=== PATIENT | male | born 1990 | race Caucasian/White ===

== ENCOUNTER 2017-02-09 06:17 | Inpatient (IN) | payer OTHER ==
[~2017-02-09] VITALS: Ht 177.8 cm; Wt 88.9 kg
--- NOTE | 2017-02-09 07:58 | DIAGNOSTIC IMAGING REPORT ---
PROCEDURE: CT ABD/PELVIS WITH CONTRAST CLINICAL INDICATION: Lower abdominal pain x 4 days, initial encounter. TECHNIQUE: 125 ml. of Isovue 300 were injected intravenously and axial images were obtained of the entire abdomen and pelvis with sagittal and coronal reformations. COMPARISON: None. FINDINGS: ABDOMEN: Thickening of a long segment of the distal ileum with small amount of free fluid around the tip of the liver. Appendix has a normal caliber. There are diffuse right lower quadrant mesenteric lymph nodes. Lung base are clear. Heart size is normal. Liver, gallbladder, pancreas, spleen, adrenal glands, kidneys and abdominal aorta are normal. PELVIS: Small amount of free fluid the pelvis. Suspected fistula between the distal ileum and mid sigmoid colon. Normal prostate and bladder. Bones are unremarkable. IMPRESSION: 1. Long segment of the distal ileum with wall thickening and small amount of free fluid in the pelvis with suspected fistula between the mid sigmoid and ileum. Findings highly suggestive of Crohn disease. 2. Results discussed with Dr. Mon All CT scans at this facility use dose modulation, iterative reconstruction, and/or weight-based dosing when appropriate to reduce radiation dose to as low as reasonably achievable.
--- NOTE | 2017-02-09 08:59 | ED CLINICAL REPORT ---
Clinical Report - Physicians/Mid Levels [facility] [address] [place] [address] 02/09/2017 6:17 Patient: FRANCOIS EVANS Time Seen: 06:46 Feb 09 2017. Arrived- By private vehicle. Historian- patient. CPT: ER phys charges level 5 (#[id number]). HISTORY OF PRESENT ILLNESS Chief Complaint: ABDOMINAL PAIN and VOMITING and NAUSEA. This started about 4 days [employer] LA[employer] and is still present. It is described as "pain", sharp and cramping and it is described as located in the right lower quadrant and left lower quadrant and in the periumbilical area. At its maximum, severity described as moderate. When seen in the E.D., severity described as moderate. Modifying factors- worsened by movement and food. Not relieved by anything. The patient has had nausea and loss of appetite. No vomiting or diarrhea. No recent travel. Similar symptoms previously: Once, as bad. Diagnosis: unknown. Recent medical care: Not recently seen/assessed. REVIEW OF SYSTEMS No constipation, black stools, hematemesis, difficulty with urination or pain with urination. No urinary frequency, fever, sore throat or throat or chest pain. No difficulty breathing, cough, joint pain, skin rash or chills. No back pain, diabetic symptoms or easy bruising. All systems otherwise negative, except as recorded above. PAST HISTORY Abrasion(s). Substance Abuse. Crush Injury, Upper Extremity. Tetanus Status. Otitis Media. URI. Immunizations. Additional Surgeries: no known surgeries. Medications: None. Allergies: Penicillins. SOCIAL HISTORY Heavy tobacco smoker (cigarette)- less than 1 pack per day. Occasional alcohol use. History of occasional drug use: marijuana. ADDITIONAL NOTES The nursing notes have been reviewed. PHYSICAL EXAM Vital Signs: 02/09/2017 06:25 BP: 134/82. HR: 88. RR: 18. O2 saturation: 100%. Pain level now: 10/10. Appearance: Alert. Appears to be in pain. Patient in moderate distress. Eyes: Eyes normal inspection. ENT: Pharynx normal. Neck: Normal inspection. CVS: Normal heart rate and rhythm. Heart sounds normal. Pulses normal. Respiratory: No respiratory distress. Breath sounds normal. Chest nontender. Abdomen: Soft. Moderate tenderness in the right side of the abdomen, periumbilical area, suprapubic area and left lower quadrant. Abnormal bowel sounds: absent. No mass. Back: Normal inspection. No CVA tenderness. Skin: Skin warm. Normal skin color. No rash. Extremities: Extremities exhibit normal ROM. Neuro: Oriented X 3. No motor deficit. No sensory deficit. LABS, X-RAYS, AND EKG Abdominal CT: Thickening of a long segment of the ileum . Fistula between mid sigmoid and distal ileum. Crohn's is highly likely. Abdominal CT performed with IV contrast. The study was interpreted by the radiologist and discussed with the radiologist. Laboratory Tests: CBC w Diff: (JOSSELIN: 02/09/2017 06:30) ( [facility] [place] 02/09/2017 06:40) Final results Test Result Flag Units (Reference) WHITE BLOOD COUNT 11.9 H K/uL (4.5-11.5) RED BLOOD COUNT 4.89 M/uL (4.50-5.90) HEMOGLOBIN 14.4 gm/dL (13.5-17.5) HEMATOCRIT 42.3 % (41.0-53.0) MEAN CELL VOLUME 87 fL (80-100) MEAN CORPUSCULAR HGB 30 pg (26-34) MEAN CORPUSCULAR HGB CONC 34 g/dL (31-37) RED CELL DISTRIBUTION WIDTH 13.1 % (11.6-14.8) PLATELET COUNT 274 K/uL (150-400) NEUTROPHIL % 67.8 % (50-75) LYMPH % 22.5 L % (25-40) MONO % 6.8 % (3-14) EOSINOPHIL % 2.5 % (0-4) BASOPHIL % 0.4 % (0-2) CMP: (JOSSELIN: 02/09/2017 06:30) ( IdgRcvd 02/09/2017 07:52) Final results Test Result Flag Units (Reference) GLUCOSE 107 mg/dL (70-110) BUN 9 mg/dL (7-18) CREATININE 0.9 mg/dL (0.6-1.3) Estimated GFR >60 mL/min Estimated GFR- >60 mL/min Note: Persistent reduction over 3 months in eGFR<60 mL/min/1.73 m2 defines CKD. Patients with eGFR values>=60 mL/min/1.73 m2 may also have CKD if evidence ofpersistent proteinuria. Additional information may be foundat www.kidney.org. SODIUM 139 mmol/L (136-145) POTASSIUM 4.6 mmol/L (3.5-5.1) CHLORIDE 106 mmol/L (98-107) CARBON DIOXIDE 20 L mmol/L (21-32) CALCIUM 8.7 mg/dL (8.5-10.1) TOTAL PROTEIN 7.4 g/dL (6.4-8.2) ALBUMIN 3.6 g/dL (3.3-5.0) BILIRUBIN, TOTAL 0.3 mg/dL (0.0-1.0) ALKALINE PHOSPHATASE 78 U/L (46-116) AST (SGOT) 30 U/L (15-37) ALT (SGPT) 47 U/L (12-78) LIPASE 186 U/L (73-393) AMYLASE 28 U/L (25-115) . PROGRESS AND PROCEDURES Course of Care: IV NS Dilaudid 0.5 mg IV Zofran 4 mg IV Solumedrol 125 mg IV Patient is stable. Symptoms better. Discussed case with health care provider (Sophie.). Patient/family counseled. Disposition orders written. Disposition: Admitted to Acute Care. CLINICAL IMPRESSION Acute periumbilical and left lower quadrant abdominal pain of undetermined cause. (Likely crohn's disease). (Electronically signed by Baltazar Mon MD 02/10/2017 11:44)
--- NOTE | 2017-02-09 08:59 | ED ORDER SUMMARY ---
..... Patient: FRANCOIS EVANS OrderSheet [facility] VisitID: [id number] [address] [place] [address] 27y, M Registration Date/Time: 02/09/2017 ORDER SHEET Weight: 94.3 kg Allergies: Penicillins GENERAL ORDERS: CBC w Diff Urgent (06:32 02/09/2017 TBowen R.N. per protocol) (6:32 TBowen R.N.) Verbal order read back and verified CMP Urgent (06:32 02/09/2017 TBowen R.N. per protocol) (6:32 TBowen R.N.) Verbal order read back and verified UA-Culture if indicated Urgent (06:02/09/2017 TBowen R.N. per protocol) (Ack 6:33 TBowen R.N.) (8:58 KHoerner) Verbal order read back and verified CT Abd/Pel w Cont (No) (N/A) Urgent (06:49 02/09/2017 Efe JARAMILLO) (Ack 6:51 SRedmond) (7:28 KHoerner) Amylase Urgent (06:50 02/09/2017 Efe JARAMILLO) (Ack 6:51 SRedmond) (7:28 KHoerner) Lipase Urgent (06:50 02/09/2017 Efe JARAMILLO) (Ack 6:51 SRedmond) (7:28 KHoerner) MEDICATION ORDERS: IV FLUIDS: Dilaudid IV 0.5 mg (NOW) (06:50 02/09/2017 Efe JARAMILLO) (7:00 TBowen R.N.) Zofran IV 4 mg (NOW) (06:50 02/09/2017 Efe JARAMILLO) (7:01 TBowkit R.N.) IV NS : initial bolus none -, then 500 mL/hr for 4h (NOW); Routine (08:57 02/09/2017 Efe JARAMILLO) (9:19 Jason R.N.) Solu-MEDROL IV 125 mg (NOW) (08:58 02/09/2017 Efe JARAMILLO) (9:19 Jason R.N.) ORDER SHEET NOTES: [Electronically signed by Angela Leblanc R.N. (10:41 02/09/2017)] [Electronically signed by Baltazar Mon MD (11:44 02/10/2017)] [Electronically locked/signed by Angela Leblanc R.N. (10:41 02/09/2017)]
--- NOTE | 2017-02-09 08:59 | ED CLINICAL REPORT ---
Clinical Report - Physicians/Mid Levels [facility] [address] [place] [place] [address] 02/09/2017 6:17 Patient: FRANCOIS EVANS Time Seen: 06:46 Feb 09 2017. Arrived- By private vehicle. Historian- patient. CPT: ER phys charges level 5 (#[id number]). HISTORY OF PRESENT ILLNESS Chief Complaint: ABDOMINAL PAIN and VOMITING and NAUSEA. 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 It is described as "pain", sharp and cramping and it is described as located in the right lower quadrant and left lower quadrant and in the periumbilical area. At its maximum, severity described as moderate. When seen in the E.D., severity described as moderate. Modifying factors- worsened by movement and food. Not relieved by anything. The patient has had nausea and loss of appetite. No vomiting or diarrhea. No recent travel. Similar symptoms previously: Once, as bad. Diagnosis: unknown. Recent medical care: Not recently seen/assessed. REVIEW OF SYSTEMS No constipation, black stools, hematemesis, difficulty with urination or pain with urination. No urinary frequency, fever, sore throat or throat or chest pain. No difficulty breathing, cough, joint pain, skin rash or chills. No back pain, diabetic symptoms or easy bruising. All systems otherwise negative, except as recorded above. PAST HISTORY Abrasion(s). Substance Abuse. Crush Injury, Upper Extremity. Tetanus Status. Otitis Media. URI. Immunizations. Additional Surgeries: no known surgeries. Medications: None. Allergies: Penicillins. SOCIAL HISTORY Heavy tobacco smoker (cigarette)- less than 1 pack per day. Occasional alcohol use. History of occasional drug use: marijuana. ADDITIONAL NOTES The nursing notes have been reviewed. PHYSICAL EXAM Vital Signs: 02/09/2017 06:25 BP: 134/82. HR: 88. RR: 18. O2 saturation: 100%. Pain level now: 10/10. Appearance: Alert. Appears to be in pain. Patient in moderate distress. Eyes: Eyes normal inspection. ENT: Pharynx normal. Neck: Normal inspection. CVS: Normal heart rate and rhythm. Heart sounds normal. Pulses normal. Respiratory: No respiratory distress. Breath sounds normal. Chest nontender. Abdomen: Soft. Moderate tenderness in the right side of the abdomen, periumbilical area, suprapubic area and left lower quadrant. Abnormal bowel sounds: absent. No mass. Back: Normal inspection. No CVA tenderness. Skin: Skin warm. Normal skin color. No rash. Extremities: Extremities exhibit normal ROM. Neuro: Oriented X 3. No motor deficit. No sensory deficit. LABS, X-RAYS, AND EKG Abdominal CT: Thickening of a long segment of the ileum . Fistula between mid sigmoid and distal ileum. Crohn's is highly likely. Abdominal CT performed with IV contrast. The study was interpreted by the radiologist and discussed with the radiologist. Laboratory Tests: CBC w Diff: (JOSSELIN: 02/09/2017 06:30) ( [facility] [place] 02/09/2017 06:40) Final results Test Result Flag Units (Reference) WHITE BLOOD COUNT 11.9 H K/uL (4.5-11.5) RED BLOOD COUNT 4.89 M/uL (4.50-5.90) HEMOGLOBIN 14.4 gm/dL (13.5-17.5) HEMATOCRIT 42.3 % (41.0-53.0) MEAN CELL VOLUME 87 fL (80-100) MEAN CORPUSCULAR HGB 30 pg (26-34) MEAN CORPUSCULAR HGB CONC 34 g/dL (31-37) RED CELL DISTRIBUTION WIDTH 13.1 % (11.6-14.8) PLATELET COUNT 274 K/uL (150-400) NEUTROPHIL % 67.8 % (50-75) LYMPH % 22.5 L % (25-40) MONO % 6.8 % (3-14) EOSINOPHIL % 2.5 % (0-4) BASOPHIL % 0.4 % (0-2) CMP: (JOSSELIN: 02/09/2017 06:30) ( WygRcvd 02/09/2017 07:52) Final results Test Result Flag Units (Reference) GLUCOSE 107 mg/dL (70-110) BUN 9 mg/dL (7-18) CREATININE 0.9 mg/dL (0.6-1.3) Estimated GFR >60 mL/min Estimated GFR- >60 mL/min Note: Persistent reduction over 3 months in eGFR<60 mL/min/1.73 m2 defines CKD. Patients with eGFR values>=60 mL/min/1.73 m2 may also have CKD if evidence ofpersistent proteinuria. Additional information may be foundat www.kidney.org. SODIUM 139 mmol/L (136-145) POTASSIUM 4.6 mmol/L (3.5-5.1) CHLORIDE 106 mmol/L (98-107) CARBON DIOXIDE 20 L mmol/L (21-32) CALCIUM 8.7 mg/dL (8.5-10.1) TOTAL PROTEIN 7.4 g/dL (6.4-8.2) ALBUMIN 3.6 g/dL (3.3-5.0) BILIRUBIN, TOTAL 0.3 mg/dL (0.0-1.0) ALKALINE PHOSPHATASE 78 U/L (46-116) AST (SGOT) 30 U/L (15-37) ALT (SGPT) 47 U/L (12-78) LIPASE 186 U/L (73-393) AMYLASE 28 U/L (25-115) . PROGRESS AND PROCEDURES Course of Care: IV NS Dilaudid 0.5 mg IV Zofran 4 mg IV Solumedrol 125 mg IV Patient is stable. Symptoms better. Discussed case with health care provider (Sophie.). Patient/family counseled. Disposition orders written. Disposition: Admitted to Acute Care. CLINICAL IMPRESSION Acute periumbilical and left lower quadrant abdominal pain of undetermined cause. (Likely crohn's disease). (Electronically signed by Baltazar Mon MD 02/10/2017 11:44)
--- NOTE | 2017-02-09 08:59 | ED ORDER SUMMARY ---
..... Patient: FRANCOIS EVANS OrderSheet [facility] VisitID: [id number] [address] [place] [address] 27y, M Registration Date/Time: 02/09/2017 ORDER SHEET Weight: 94.3 kg Allergies: Penicillins GENERAL ORDERS: CBC w Diff Urgent (06:32 02/09/2017 TBowen R.N. per protocol) (6:32 TBowen R.N.) Verbal order read back and verified CMP Urgent (06:32 02/09/2017 TBowen R.N. per protocol) (6:32 TBowen R.N.) Verbal order read back and verified UA-Culture if indicated Urgent (06:02/09/2017 TBowen R.N. per protocol) (Ack 6:33 TBowen R.N.) (8:58 KHoerner) Verbal order read back and verified CT Abd/Pel w Cont (No) (N/A) Urgent (06:49 02/09/2017 Efe JARAMILLO) (Ack 6:51 SRedmond) (7:28 KHoerner) Amylase Urgent (06:50 02/09/2017 Efe JARAMILLO) (Ack 6:51 SRedmond) (7:28 KHoerner) Lipase Urgent (06:50 02/09/2017 Efe JARAMILLO) (Ack 6:51 SRedmond) (7:28 KHoerner) MEDICATION ORDERS: IV FLUIDS: Dilaudid IV 0.5 mg (NOW) (06:50 02/09/2017 Efe JARAMILLO) (7:00 TBowen R.N.) Zofran IV 4 mg (NOW) (06:50 02/09/2017 Efe JARAMILLO) (7:01 TBowkit R.N.) IV NS : initial bolus none -, then 500 mL/hr for 4h (NOW); Routine (08:57 02/09/2017 Efe JARAMILLO) (9:19 Jason R.N.) Solu-MEDROL IV 125 mg (NOW) (08:58 02/09/2017 Efe JARAMILLO) (9:19 Jason R.N.) ORDER SHEET NOTES: [Electronically signed by Angela Leblanc R.N. (10:41 02/09/2017)] [Electronically signed by Baltazar Mon MD (11:44 02/10/2017)] [Electronically locked/signed by Angela Leblanc R.N. (10:41 02/09/2017)]
--- NOTE | 2017-02-09 08:59 | ED NURSING NOTES ---
Clinical Report - Nurses [facility] [address] [place] [address] 02/09/2017 6:17 Patient: FRANCOIS EVANS TRIAGE Triage time 06:25. Acuity: LEVEL 3. Chief Complaint: ABDOMINAL PAIN, NAUSEA and VOMITING. --06:28 Ellis R.N. 06:02/09/17. BP: 134/82. HR: 88. RR: 18. O2 saturation: 100%. Pain level now: 07/27. --06:28 Ellis R.N. 06:02/09/17. Temp: 97.6 F. --06:29 Ellis R.N. Weight: 94.3 kg. Height/Length: 70 inches. BMI: 29.8. --06:27 Ellis R.N. Medications None. --06:25 Ellis R.N. Allergies Penicillins. --06:25 Ellis R.N. History Arrived by private vehicle. Historian: patient. ( pt states the pain started Wednesday). The patient has had nausea, vomiting and diarrhea. Last oral intake by patient was 1 hour ago. 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 PAST MEDICAL HX: Immunizations: up-to-date. SOCIAL HX: Light tobacco smoker- less than 1/2 a pack per day. Occasional alcohol use. History of occasional drug use: marijuana. No recent travel. No infectious disease exposure. No known contact with a sick individual. SELF HARM ASSESSMENT: A self harm assessment was performed. The patient answered "no" to the question "Have you recently felt down, depressed, or hopeless?", "Have you noticed less interest or pleasure in doing things?", "Do you have thoughts of harming or killing yourself?", "Are you here because you tried to hurt yourself?", "Have you ever tried to hurt yourself before today?", "Have you recently had thoughts about harming or killing others?" and "Do you have any dangerous items in your possession?". FALL RISK ASSESSMENT: Fall risk assessment completed. No fall risk identified. NUTRITIONAL RISK ASSESSMENT: The nutritional risk assessment revealed no deficiencies. FUNCTIONAL ASSESSMENT: Functional assessment: no impairments noted. LEARNING NEEDS ASSESSMENT: The learning needs assessment revealed no barriers. SKIN INTEGRITY ASSESSMENT: Skin integrity risk assessment completed. No skin integrity risk identified. --06:28 Osvaldo Corral PROBLEMS: Abrasion(s). Substance Abuse. Crush Injury, Upper Extremity. Tetanus Status. Otitis Media. URI. Immunizations. --: Osvaldo Corral ADDITIONAL SURGERIES: no known surgeries. Interventions ID band on patient. To treatment room. --06:28 Osvaldo Corral PHYSICAL ASSESSMENT Ambulatory to room. GENERAL / NEURO / PSYCH: Alert. Oriented X 4. Appears in pain. HEENT: Mucous membranes are pink. RESPIRATORY: Respirations not labored. Breath sounds within normal limits. CVS: Normal sinus rhythm noted. Capillary refill less than 2 seconds. GI / : The patient has had nausea and diarrhea. Emesis noted. Abdomen soft. Bowel sounds within normal limits. SKIN: Skin is warm and dry. --06:28 Osvaldo Corral NURSING PROGRESS NOTES Patient gowned. Patient identifiers checked. Call light placed in reach. Side rails up x 1. Bed placed in lowest position. Brakes of bed on. --06:29 Osvaldo Corral Checked patient name and birthdate. Blood samples drawn from the right antecubital space by nurse ; labeled in presence of the patient and sent to lab: rainbow set. --06:30 Osvaldo Corarl 06:30 02/09/2017 One (1) unsuccessful IV access attempt including the right antecubital space. Applied bandage and manual pressure (sindi blood at time of attempt). --06:35 Katie Meade R.N. 06:33 02/09/2017 Site #1 started via IV in the left antecubital space with an 20g angiocath, with aseptic technique and good blood return; one attempt. Saline lock flushed with 10 mL saline. --06:33 Osvaldo Corral Patient ID band checked for patient name and birthdate: patient confirmed. Blood samples drawn from the right antecubital space peripheral IV site (prior to IV fluid start) by nurse per protocol ; labeled in presence of the patient and sent to lab: alyssa set. --06:35 Katie Meade R.N. 07:00 02/09/2017 Dilaudid (HYDROmorphone HCl PF) IVP 0.5 mg given over 1 minute(s) via site #1. Allergies verified, confirmed 5 rights and sedative warning given to the patient. IV patency established. IV site checked: no pain, redness, or swelling. IV flushed thoroughly pre- and post-medication administration. IVP given by RN. --07:00 Osvaldo Corral 07:01 02/09/2017 Zofran (Ondansetron HCl) IVP 4 mg given over 1 minute(s) via site #1. Allergies verified and confirmed 5 rights. IV patency established. IV site checked: no pain, redness, or swelling. IV flushed thoroughly pre- and post-medication administration. IVP given by RN. --07:01 Osvaldo Corral Care transferred and report received. --07:01 Radha Espitia R.N. 07:15 02/09/17. Patient transported to CT by stretcher with tech. --07:15 Radha Espitia R.N. 07:45 02/09/17. BP: 128/64. HR: 62. RR: 16. O2 saturation: 98%. --07:46 Radha Espitia R.N. 07:46 02/09/17. Warming measures: blanket applied. He was positioned up in bed. Lights dimmed. --07:46 Radha Espitia R.N. 07:47 02/09/17. Reassessment after procedure and medication administered (report pain at IV site after CT). Overall patient status- he states feels better. GI / : The patient reports nausea is gone now. The patient reports abdominal pain is still present but improving. --07:47 Radha Espitia R.N. 08:39 02/09/17. BP: 113/64. HR: 61. RR: 14. O2 saturation: 97%. --08:39 Nupur, Radha, R.N. ( reminded patient that we need urine). --08:40 Radha Espitia R.N. 09:12 02/09/2017 Site #1 removed. Bandaid applied (painful removed at patient request). --09:18 Radha Espitia R.N. 09:13 02/09/2017 Site #2 started via IV in the right wrist with an 20g angiocath, with aseptic technique and good blood return; one attempt. Saline lock flushed with 10 mL saline. --09:18 Radha Espitia R.N. 09:16 02/09/2017 Started bag #1 1000 mL IV Fluids IV NS (Saline); at 500 mL/hr over 2 hour(s) via site #2 via IV pump. Allergies verified and confirmed 5 rights. IV patency established. IV site checked: no pain, redness, or swelling. IV flushed thoroughly pre- and post-medication administration. --09:19 Radha Espitia R.N. 09:19 02/09/2017 SOLU-MEDROL (MethylPREDNISolone Sodium Succ) IVP 125 mg given over 2 minute(s) via site #2. Allergies verified and confirmed 5 rights. IV patency established. IV site checked: no pain, redness, or swelling. IV flushed thoroughly pre- and post-medication administration. IVP given by RN. --09:19 Radha Espitia R.N. 09:44 02/09/17. BP: 134/63. HR: 60. RR: 14. O2 saturation: 98%. --09:44 Radha Espitia R.N. Patient ID band checked for patient name and birthdate: patient confirmed. Instructions provided to collect clean catch urine and patient verbalized understanding. Clean catch urine collected with return of yellow-colored urine; odor is normal; sample sent to lab for urinalysis and culture. Specimen labeled in the presence of the patient. --09:57 Delphine Geller ER TechJuve 10:19 02/09/2017 IV Fluids IV NS Continued: upon admission at the rate of 250 mL/hr. 250 mL remaining bag #1. IV patency established. IV site checked: no pain, redness, or swelling. IV flushed thoroughly. --10:19 Angela Leblanc R.N. 10:24 02/09/2017 Site #[address] upon admission; patent and no pain. Good blood return present. Flushed. --10:24 Angela Leblanc R.N. DISPOSITION / DISCHARGE [facility]-- Departure time: 07:23. No learning barriers present. Discharge instructions provided and reviewed with the patient. Reviewed medication(s) information. Prescription(s) given to the patient. Work note given. Patient verbalized understanding. Written instructions provided in Surinamese. The patient was discharged home and accompanied by family. He left the Emergency Department ambulatory and via private vehicle. --07:23 Radha Espitia R.N. --END STRIKE>> Charted On Wrong Patient --07:24 Radha Espitia R.N. <<[facility]-- 07:22 02/09/17. BP: 121/69. HR: 82. RR: 16. O2 saturation: 98%. --07:23 Radha Espitia R.N. --END STRIKE>> Charted on wrong patient. --07:25 Radha Espitia R.N. 10:18 02/09/17. BP: 129/62. HR: 59. RR: 18. O2 saturation: 97% on room air. Temp: deferred. 09:44 02/09/17. BP: 134/63. HR: 60. RR: 14. O2 saturation: 98%. 08:39 02/09/17. BP: 113/64. HR: 61. RR: 14. O2 saturation: 97%. 07:45 02/09/17. BP: 128/64. HR: 62. RR: 16. O2 saturation: 98%. 06:29 02/09/17. Temp: 97.6 F. 06:25 02/09/17. BP: 134/82. HR: 88. RR: 18. O2 saturation: 100%. Pain level now: 07/27. --10:19 Angela Leblanc R.N. Transported via stretcher by tech with IV. Report was given. (ISIAH Stone). Patient's personal items include: shirt, pants, undergarments, socks, shoes, wallet and cell phone; items were placed in belongings bag and transported with the patient. Collection of belongings was witnessed by 1 nurse. He did not have coat. --10:26 Angela Leblanc R.N. Locked/Released at 02/09/2017 10:41 by Angela Leblanc R.N.
--- NOTE | 2017-02-09 10:35 | Progress Note ---
Subjective General The patient is a 27-year-old white male with a with a prior medical history of probable Crohn's. Patient presented to the emergency department. [facility] with complaint of abdominal pain, pain have been persistent over the past 3-4 days. Patient states that he's had history of inflammatory changes. His bowels. Patient has been seen by gastroenterology who is recommended therapy. Patient when seen in the ED, was found with an exam for an acute abdomen. General surgery was consulted. Patient was put on nothing by mouth. CT of abdomen was done. Showed inflammatory changes at the cecum. Patient symptoms and findings suggestive of Crohn's. Secondary to the above, the patient was admitted by Doug Cornejo M.D. for further evaluation and treatment. For history of present illness began 2-3 days prior to admission when the patient had increasing pain in the abdominal region. Patient had poor by mouth. Patient had multiple bouts of vomiting. Patient states he always has loose tube with increase in stooling occurred. Patient reports that for the end of 2014. In the beginning of 2015. Patient was hospitalized some more compliant. At that time multiple imaging was done. Patient was also scoped from top and bottom. Patient reports that he was not clear as to causation. Doctors of time. Discussed starting patient on medication to see how he did. Patient since then has been taking [id number] therapy with success until recently when patient began having pain return. Physical Exam General Appearance Oriented X3, Cooperative, Mild distress HEENT EOMI, Moist mucous membranes Lungs Clear to auscultation, Normal air movement Neck Supple, No JVD, No masses, No thyromegaly Cardiovascular Regular rate and rhythm, Normal S1 and S2 Abdomen Distended with tenderness in all four quadrants. Bowel sounds present no rebound, Extremities No cyanosis, No clubbing Skin No Significant Lesions Neurological Cranial nerves intact Psych/Mental Status Mental status normal, Mood normal LAB Results Laboratory Tests 02/09 02/09 02/09 0630 0630 0850 Chemistry Plasma Sodium (136 - 145 mmol/L) 139 Plasma Potassium (3.5 - 5.1 mmol/L) 4.6 Plasma Chloride (98 - 107 mmol/L) 106 CO2 (Enzymatic) (21 - 32 mmol/L) 20 BUN (7 - 18 mg/dL) 9 Creatinine (0.6 - 1.3 mg/dL) 0.9 Est GFR ( Amer) (mL/min) >60 Est GFR (Non-Af Amer) (mL/min) >60 Glucose (70 - 110 mg/dL) 107 Plasma Calcium (8.5 - 10.1 mg/dL) 8.7 Total Bilirubin (0.0 - 1.0 mg/dL) 0.3 AST (15 - 37 U/L) 30 ALT (12 - 78 U/L) 47 Alkaline Phosphatase (46 - 116 U/L) 78 Total Protein (6.4 - 8.2 g/dL) 7.4 Albumin (3.3 - 5.0 g/dL) 3.6 Amylase (25 - 115 U/L) 28 Cancelled Lipase (73 - 393 U/L) 186 Cancelled Hematology WBC (4.5 - 11.5 K/uL) 11.9 RBC (4.50 - 5.90 M/uL) 4.89 Hgb (13.5 - 17.5 gm/dL) 14.4 Hct (41.0 - 53.0 %) 42.3 MCV (80 - 100 fL) 87 MCH (26 - 34 pg) 30 RDW (11.6 - 14.8 %) 13.1 Neut % (Auto) (50 - 75 %) 67.8 Lymph % (Auto) (25 - 40 %) 22.5 [place] % (Auto) (3 - 14 %) 6.8 Eos % (Auto) (0 - 4 %) 2.5 Baso % (Auto) (0 - 2 %) 0.4 Plt Count, EDTA (150 - 400 K/uL) 274 PUBS MCHC (31 - 37 g/dL) 34 Urines Urine Color YELLOW Urine Appearance CLEAR Urine pH (5.0 - 8.0) 5.5 Ur Specific [place] (1.010 - 1.030) 1.010 Urine Protein (NEGATIVE) NEGATIVE Urine Ketones (NEGATIVE) NEGATIVE Urine Blood (NEGATIVE) NEGATIVE Urine Nitrite (NEGATIVE) NEGATIVE Urine Bilirubin (NEGATIVE) NEGATIVE Urine Urobilinogen (0.2 - 1.0 EU/dL) 0.2 Ur Leukocyte Esterase (NEGATIVE) NEGATIVE Urine RBC (0 - 1 rbc/hpf) 0-1 Urine WBC (0 - 1 wbc/hpf) NONE SEEN Ur Epithelial Cells (0 - 5 EPI/hpf) 0-1 Urine Bacteria (NONE SEEN) NONE SEEN Urine Glucose (NEGATIVE) NEGATIVE Urine Comment CULT NOT INDICATED Microbiology Date/Time Procedure - Status Source Growth 02/09 1028 Escherichia coli Shiga Toxins EIA - ORD STOOL 02/09 1028 Campylobacter Culture - ORD STOOL 02/09 1028 Salmonella/Shigella Culture - ORD STOOL 02/09 1028 Ova and Parasites - ORD STOOL 02/09 1028 Clostridium difficile Toxin A & B - ORD STOOL 02/09 1028 Specimen Source - ORD STOOL 02/09 1028 Stool Leukocytes - ORD STOOL Imaging ROCEDURE: CT ABD/PELVIS WITH CONTRAST IMPRESSION: 1. Long segment of the distal ileum with wall thickening and small amount of free fluid in the pelvis with suspected fistula between the mid sigmoid and ileum. Findings highly suggestive of Crohn disease. Assessment and Plan Problem List 1. CROHN'S FLARE Plan Nava to be a Crohn's flare. The patient with general surgery, may consider colonoscopy. In the meantime, patient is nothing by mouth. Patient was also be put on TPN for nutritional support. Patient needs strict bowel rest. 2. ABDOMINAL PAIN Plan Acute abdomen. ABIs for prophylaxis. 3. Nausea & vomiting Plan Nothing by mouth at this time. 4. Diarrhea in adult patient Plan Diarrhea. Reviewed its consequence of food Crohn's disease. E&M Codes Admission: Inpt-Moderate/28635
[2017-02-09 10:38] VITALS: BP 122/61
--- NOTE | 2017-02-09 12:46 | DIAGNOSTIC IMAGING REPORT ---
PROCEDURE: XR CHEST 1 VIEW INDICATION: PICC PLACEMENT TECHNIQUE: Portable AP view 12:38 p.m. COMPARISON: None. FINDINGS: Right PICC line with the tip in the SVC. Lungs are clear. Heart and mediastinum are normal. Thorax is normal. IMPRESSION: 1. Right PICC line in satisfactory position 2. Results called to respiratory (Luis Fernando).
[2017-02-09 14:18] VITALS: BP 110/54
[2017-02-09 18:25] VITALS: BP 100/54
[2017-02-09 22:50] VITALS: BP 124/55
[2017-02-10 02:55] VITALS: BP 120/63
[2017-02-10 07:09] VITALS: BP 104/45
--- NOTE | 2017-02-10 07:30 | DIAGNOSTIC IMAGING REPORT ---
PROCEDURE: XR ABDOMEN 1 VIEW UPRIGHT INDICATION: Crohn disease. Follow-up. TECHNIQUE: AP upright view. COMPARISON: Compared to CT abdomen pelvis on 02/09/2017. FINDINGS: There are moderately prominent small bowel loops in the right central and lower abdomen with a few air-fluid levels. Bowel pattern is otherwise normal. No evidence of free air. Soft tissues and osseous structures are normal. IMPRESSION: 1. Moderately prominent and mildly dilated small bowel loops in right lower quadrant consistent with ileus or partial small bowel obstruction. 2. Otherwise negative abdomen.
--- NOTE | 2017-02-10 07:45 | Progress Note ---
Subjective General Note Date: February 10, 2017 Admission Date: February 09, 2017 Hospital Day: 2 PCP: Unknown Status: AC inpatient Advanced Directive: FULL CODE Room: 211- Brief history 27-year-old white male with a with a prior medical history of probable Crohn's. Patient presented to the emergency department. [facility] with complaint of abdominal pain, pain have been persistent over the past 3-4 days. Patient states that he' s had history of inflammatory changes. His bowels. Patient has been seen by gastroenterology who is recommended therapy. Patient when seen in the ED, was found with an exam for an acute abdomen. General surgery was consulted. Patient was put on nothing by mouth. CT of abdomen was done. Showed inflammatory changes at the cecum. Patient symptoms and findings suggestive of Crohn's. Secondary to the above, the patient was admitted by Doug Cornejo M.D. for further evaluation and treatment. Subjective Patient reports a mild improvement in pain. Patient will have a colonoscopy today. Repeat imaging was done. Dr. Gonzalez stated that the colonoscopy showed resolution of the inflammation in the terminal ileum. Opted for recommended Laproscopic procedure. Patient is now on clear liquids. Tolerated the TPN. Physical Exam Vital Signs / I&Os Vital Signs Date Time Temp Pulse Resp B/P Pulse O2 O2 Flow FiO2 Ox Delivery Rate 02/10 0709 97.9 85 22 104/45 95 Room Air 0.0 02/10 0255 97.9 89 18 120/63 98 Room Air 02/09 2250 97.5 64 18 124/55 95 Room Air 02/09 1825 98.2 70 18 100/54 98 Room Air 02/09 1659 Room Air 02/09 1418 98.2 62 20 110/54 96 Room Air 0.0 02/09 1135 Room Air 0.0 02/09 1038 97.7 77 24 122/61 97 Room Air 0.0 I&O 02/09 0800 02/09 1600 02/10 0000 Intake Total 495 1288 Output Total 300 400 Balance 195 888 General Appearance Oriented X3, Cooperative HEENT Normal exam, EOMI Lungs Clear to auscultation, Normal air movement Neck Supple Cardiovascular Normal S1 and S2, No murmurs, gallops, rubs Abdomen tenderness, less distention. Bowel sounds appreciated Neurological Normal speech, Cranial nerves intact Psych/Mental Status Mood normal LAB Results Laboratory Tests 02/10 02/10 02/10 UNK 0500 0545 Chemistry Plasma Sodium (136 - 145 mmol/L) Cancelled 138 Plasma Potassium (3.5 - 5.1 mmol/L) Cancelled 4.5 Plasma Chloride (98 - 107 mmol/L) Cancelled 106 CO2 (Enzymatic) (21 - 32 mmol/L) Cancelled 24 BUN (7 - 18 mg/dL) Cancelled 10 Creatinine (0.6 - 1.3 mg/dL) Cancelled 0.9 Est GFR ( Amer) (mL/min) Cancelled >60 Est GFR (Non-Af Amer) (mL/min) Cancelled >60 Glucose (70 - 110 mg/dL) Cancelled 166 Plasma Calcium (8.5 - 10.1 mg/dL) Cancelled 8.9 Phosphorus (2.5 - 4.9 mg/dL) 3.1 Plasma Magnesium (1.8 - 2.4 mg/dL) 2.2 Total Bilirubin (0.0 - 1.0 mg/dL) 0.3 AST (15 - 37 U/L) 16 ALT (12 - 78 U/L) 40 Alkaline Phosphatase (46 - 116 U/L) 74 Total Protein (6.4 - 8.2 g/dL) 7.5 Albumin (3.3 - 5.0 g/dL) 3.6 Prealbumin Pending Hematology WBC (4.5 - 11.5 K/uL) 13.8 RBC (4.50 - 5.90 M/uL) 4.66 Hgb (13.5 - 17.5 gm/dL) 13.7 Hct (41.0 - 53.0 %) 40.7 MCV (80 - 100 fL) 87 MCH (26 - 34 pg) 30 RDW (11.6 - 14.8 %) 12.9 Neut % (Auto) (50 - 75 %) 86.2 Lymph % (Auto) (25 - 40 %) 10.2 [place] % (Auto) (3 - 14 %) 3.4 Eos % (Auto) (0 - 4 %) 0 Baso % (Auto) (0 - 2 %) 0.2 Plt Count, EDTA (150 - 400 K/uL) 247 PUBS MCHC (31 - 37 g/dL) 34 Microbiology Date/Time Procedure - Status Source Growth 02/10 1130 Escherichia coli Shiga Toxins EIA - RECD STOOL 04/26 1130 Campylobacter Culture - RECD STOOL 02/10 1130 Salmonella/Shigella Culture - RECD STOOL 02/10 1130 Ova and Parasites - RECD STOOL 02/10 1130 Clostridium difficile Toxin A & B - RECD STOOL 02/10 1130 Specimen Source - RECD STOOL 02/10 113 Stool Leukocytes - RECD STOOL Assessment and Plan Problem List 1. CROHN'S FLARE Plan Patient is on bowel rest. Given the recent results of the colonoscopy and resolution of the inflammatory process in the terminal ileum. No signs of a fistula. Advanced diet to tolerance 2. ABDOMINAL PAIN Plan Pain control. 3. Nausea & vomiting Plan Plan to monitor, make changes to avoid emesis and nausea. 4. Diarrhea in adult patient Plan Frequent diarrhea. Assessment Frequency and consistency Current status: Fair to poor Consulting physician, general surgery Anticipated discharge date: 1-2 days Anticipated discharge placement: Home Patient care time: Time spent in chart review, patient interview, physical exam, CPOE, and care documentation: 25 minutes Visit to patient today: Complexity of care: Mild to moderate Initial patient evaluation: Emergency department DVT prophylaxis: SCD/TEDS GI prophylaxis E&M Codes Rounding: Inpt-Moderate/17193
[2017-02-10 10:22] VITALS: BP 116/64
--- NOTE | 2017-02-10 11:45 | ED MAR SUMMARY ---
..... Medication Administration Record [facility] [address] [place] [address] Patient: FRANCOIS EVANS Visit ID: [id number] 27y, M Weight: 94.3 kg Height/Length: 70 in BMI: 29.8 ALLERGIES: Penicillins Given 07:00 02/09/2017 Osvaldo Corral Medication Administered: DILAUDID [IVP] (HYDROMORPHONE HCL PF), Dose: 0.5 mg IVP over 1 minute(s), Site: #1 left AC. Medication Ordered: Dilaudid IV 0.5 mg (NOW). Given 07:01 02/09/2017 Osvaldo Corral Medication Administered: ZOFRAN [IVP] (ONDANSETRON HCL), Dose: 4 mg IVP over 1 minute(s), Site: #1 left AC. Medication Ordered: Zofran IV 4 mg (NOW). Start 09:16 02/09/2017 Radha Espitia R.N., Continued Upon Admission 10:19 02/09/2017 Angela Leblanc R.N. Medication Administered: IV NS (SALINE), Dose: IV Fluids over 2 hour(s), Rate: 500 mL/hr, Dispensed: 1000 mL bag, Site: #2 right wrist. Medication Ordered: IV NS : initial bolus none -, then 500 mL/hr for 4h (NOW); Routine. Given 09:19 02/09/2017 Radha Espitia R.N. Medication Administered: SOLU-MEDROL [IVP] (METHYLPREDNISOLONE SODIUM SUCC), Dose: 125 mg IVP over 2 minute(s), Site: #2 right wrist. Medication Ordered: Solu-MEDROL IV 125 mg (NOW).
--- NOTE | 2017-02-10 11:45 | ED MAR SUMMARY ---
..... Medication Administration Record [facility] [address] [place] [address] Patient: FRANCOIS EVANS Visit ID: [id number] 27y, M Weight: 94.3 kg Height/Length: 70 in BMI: 29.8 ALLERGIES: Penicillins Given 07:00 02/09/2017 Osvaldo Corral Medication Administered: DILAUDID [IVP] (HYDROMORPHONE HCL PF), Dose: 0.5 mg IVP over 1 minute(s), Site: #1 left AC. Medication Ordered: Dilaudid IV 0.5 mg (NOW). Given 07:01 02/09/2017 Osvaldo Corral Medication Administered: ZOFRAN [IVP] (ONDANSETRON HCL), Dose: 4 mg IVP over 1 minute(s), Site: #1 left AC. Medication Ordered: Zofran IV 4 mg (NOW). Start 09:16 02/09/2017 Radha Espitia R.N., Continued Upon Admission 10:19 02/09/2017 Angela Leblanc R.N. Medication Administered: IV NS (SALINE), Dose: IV Fluids over 2 hour(s), Rate: 500 mL/hr, Dispensed: 1000 mL bag, Site: #2 right wrist. Medication Ordered: IV NS : initial bolus none -, then 500 mL/hr for 4h (NOW); Routine. Given 09:19 02/09/2017 Radha Espitia R.N. Medication Administered: SOLU-MEDROL [IVP] (METHYLPREDNISOLONE SODIUM SUCC), Dose: 125 mg IVP over 2 minute(s), Site: #2 right wrist. Medication Ordered: Solu-MEDROL IV 125 mg (NOW).
--- NOTE | 2017-02-10 11:45 | ED DISCHARGE INSTRUCTIONS ---
Patient: FRANCOIS EVANS General Instructions [facility] VisitID: [id number] [place] [address] 27y, M Registration Date/Time: 02/09/2017 Acute periumbilical and left lower quadrant abdominal pain of undetermined cause. (Likely crohn's disease). ADDITIONAL INFORMATION Abdominal Pain,Uncertain Cause [Male] Based on your visit today, the exact cause of your abdominalpain is not clear. Your exam and tests do not indicate a dangerous cause at this time. However, the signs of a serious problem may take more time to appear. Although your evaluation was reassuring today, sometimes early in the course of many conditions, exam and lab tests can appear normal. Therefore, it is important for you to watch for any new symptoms or worsening of your condition. Causes It may not be obvious what caused your symptoms. Pay attention to things that do seem to make your symptoms worse or better and discuss this with your doctor when you follow up. Diagnosis The evaluation of abdominal pain in the emergency department may onlyrequire an exam by the doctor or it may include blood, urine or imaging studies, depending on many factors. Sometimes exams and tests can identify a cause but in many cases, a clear cause is not found. Further testing at follow up visits may help to suggest a clear diagnosis. Home Care Rest as much as possible until your next exam. Try to avoid any medications (unless otherwise directed by your doctor), foods, activities, or other factors that you may have contributed to your symptoms. Try to eat foods that you know that you have tolerated well in the past. Certain diets may be recommended for some conditions that cause abdominal pain. However, since the cause of your symptoms may not be clear, discuss your diet more with your primary care provider or specialist for further recommendations. Eating several small meals per day as opposed to 2 or 3 larger meals may help. Monitor closely for anything that may make your symptoms worse or better. Pay close attention to symptoms below that may indicate worsening of your condition. Follow Up and Precautions See your doctoras instructed or sooneror if your symptoms are not improving.In some cases, you may need more testing. When to Seek Medical Attention Contact your doctor or see medical attention ifany of the following occur: Pain is becoming worse You are unable to take your medications due to excessive vomiting Swelling of the abdomen Fever of 100.4F (38C) or higher, or as directed by your health care provider Blood in vomit or bowel movements (dark red or black color) Jaundice (yellow color of eyes and skin) New onset of weakness, dizziness or fainting New onset of chest, arm, back, neck or jaw pain You have been given the following additional information: Abdominal Pain, Unknown Cause, (Male) (Electronically signed by Baltazar Mon MD 02/10/2017 11:44)
--- NOTE | 2017-02-10 11:45 | ED MED RECONCILIATION SUMMARY ---
Patient: FRANCOIS EVANS Medication Reconciliation Report [facility] VisitID: [id number] [address] [place] [address] 27y, M Registration Date/Time: 02/09/2017 Weight: 94.3 kg Height/Length: 70 in. BMI: 29.8 ALLERGIES: Penicillins The patient's Home Medications are listed below: NONE. The source(s) of the original Home Medication information: Not obtained. The following Medications were given to the patient in the Emergency Department: Dilaudid [IVP] IVP 0.5 mg, administered: 02/09/2017 7:00:00 AM Zofran [IVP] IVP 4 mg, administered: 02/09/2017 7:01:00 AM IV NS IV Fluids bolus 0, then 500 mL/hr, administered: 02/09/2017 9:16:00 AM SOLU-MEDROL [IVP] IVP 125 mg, administered: 02/09/2017 9:19:00 AM The following Medications were prescribed to the patient: None.
--- NOTE | 2017-02-10 11:45 | ED MED RECONCILIATION SUMMARY ---
Patient: FRANCOIS EVANS Medication Reconciliation Report [facility] VisitID: [id number] [address] [place] [address] 27y, M Registration Date/Time: 02/09/2017 Weight: 94.3 kg Height/Length: 70 in. BMI: 29.8 ALLERGIES: Penicillins The patient's Home Medications are listed below: NONE. The source(s) of the original Home Medication information: Not obtained. The following Medications were given to the patient in the Emergency Department: Dilaudid [IVP] IVP 0.5 mg, administered: 02/09/2017 7:00:00 AM Zofran [IVP] IVP 4 mg, administered: 02/09/2017 7:01:00 AM IV NS IV Fluids bolus 0, then 500 mL/hr, administered: 02/09/2017 9:16:00 AM SOLU-MEDROL [IVP] IVP 125 mg, administered: 02/09/2017 9:19:00 AM The following Medications were prescribed to the patient: None.
--- NOTE | 2017-02-10 12:53 | Consultation Report ---
History Chief Complaint Abdominal pain History of Present Illness 27-year-old male that was admitted to [facility] via the emergency room on 02/10/17. Patient states that he also had nausea vomiting and diarrhea. Patient states that he last passed any flatus 2 days ago and his last bowel movement was approximately 2 days ago as well. Patient states that the discomfort is located periumbilical region but unlike pain that he has had in the past he complains of soreness everywhere in his abdomen and lower back. Patient denies any weight loss, or fever/ chills. Patient states that he's had pain like this off and on for the last 2 years he describes the pain as being mild with occasional cramping in nature this is pretty much chronic. Patient states that he's been fine for the last 5 months and is recently developed the exacerbation. Patient states that certain foods exacerbates the problem to include red sausage , bread, dairy products, and heavy red meats. An additional to the abdominal discomfort he has cramps and diarrhea. Patient has been worked up in the past to include colonoscopies 2 and the last one year ago and upper GI endoscopy. Biopsies showed no evidence of Crohn's disease. On admission patient's white count was 11.9. This morning 13.8. On admission hemoglobin and hematocrit 14.4 and 42.3 respectively. This morning hemoglobin and hematocrit 13.7/40.7. Electrolytes and liver function studies on admission normal. ALLERGIES: Penicillin-anaphylaxis MEDICATION: None PAST MEDICAL/SURGICAL: Teeth extraction. History of crushing injury right hand requiring no surgery Patient is presently followed by Lorenza Hatfield M.D. FAMILY HISTORY: mother age 49 history of degenerative joint disease. Father age 57 killed in an assault. 3 brothers and 2 sisters they are alive and well. Patient History 1. ABDOMINAL PAIN 2. Nausea & vomiting 3. CROHN'S FLARE Social History . 3 sons and 1 daughter alive and well. Patient smokes 1-1/2-1 pack series today. Patient drinks alcohol socially on weekends. 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 Medications and Allergies Medications Current Medications Sig/Too Start time Last Medication Dose Route Stop Time Status Admin Hydromorphone HCl 1 MG Q2H PRN 02/10 1230 AC IV Hydromorphone HCl 0.5 MG Q2H PRN 02/10 1230 AC 02/10 IV 1420 Lidocaine 15 ML ACHS PRN 02/10 1215 AC Al Hydrox/Mg Hydrox/ 15 ML PO Simethicone Pantoprazole Sodium 40 MG DAILY@0600 02/10 0600 AC 02/10 IV 0618 Ketorolac 30 MG Q6H PRN 02/09 1745 AC 02/10 Tromethamine IV 02/14 1744 0933 Amino Acids/ 1,000 ML .BY DURATION 02/09 1430 AC 02/10 Electrolytes/Dextrose IV 0314 Fat Emulsion 250 ML Q24H 02/09 1430 AC 02/10 Intravenous IV 1415 Multivitamins 10 ML .BY DURATION 02/09 1430 AC 02/09 Trace Metals 1 ML IV 1441 Amino Acids/ 1,000 ML Electrolytes/Dextrose Methylprednisolone 125 MG Q8HR 02/09 1400 AC 02/10 Sodium Succinate IV 02/12 0601 1415 Nicotine 14 MG QAM 02/09 1230 AC TOP Dextrose/Water 500 ML ASDIRECTED PRN 02/09 1030 AC IV Total Parenteral See Dose .[PER PHARMACY] 02/09 1030 AC Nutrition Insts (1) IV Dextrose/Sodium 1,000 ML ASDIRECTED 02/09 1015 AC 02/10 Chloride/Electrolyt IV 1124 Ondansetron HCl 4 MG Q6H PRN 02/09 1015 AC IV Zolpidem Tartrate 5 MG QHS PRN 02/09 1015 AC PO Dose Instructions: (1)Total Parenteral Nutrition: TPN PER PHARMACY PROTOCOL Allergies Coded Allergies: Penicillins (Severe, 02/09/17) Review of Systems Other No prior history of hepatitis, jaundice, rheumatic fever, heart murmurs requiring antibiotics, no bleeding tendencies, and no history of blood transfusions. The remaining 12 point review of systems is negative. Physical Exam Vital Signs / I&Os Vital Signs Date Time Temp Pulse Resp B/P Pulse O2 O2 Flow FiO2 Ox Delivery Rate 02/10 1045 95 02/10 1022 97.5 69 21 116/64 96 Room Air 0.0 0.0 I&O 02/09 0800 02/09 1600 02/10 0000 Intake Total 495 1288 Output Total 300 400 Balance 195 888 General Appearance Alert, Oriented X3, Cooperative, No acute distress HEENT Normal exam, Atraumatic, PERRLA, EOMI, Moist mucous membranes, no scleral icterus Lungs Clear to auscultation Neck Supple, No JVD, No masses, No thyromegaly Cardiovascular Regular rate and rhythm, No murmurs, gallops, rubs Abdomen Normal bowel sounds, minimal distention, no tympany. Patient's abdomen is soft but tender in all quadrants. Extremities No edema Skin no peripheral cyanosis Neurological No lateralizing signs Psych/Mental Status Mood normal LAB Results Laboratory Tests 02/09 02/10 02/10 02/10 1309 UNK 0500 0545 Chemistry Plasma Sodium (136 - 145 mmol/L) Cancelled 138 Plasma Potassium (3.5 - 5.1 mmol/L) Cancelled 4.5 Plasma Chloride (98 - 107 mmol/L) Cancelled 106 CO2 (Enzymatic) (21 - 32 mmol/L) Cancelled 24 BUN (7 - 18 mg/dL) Cancelled 10 Creatinine (0.6 - 1.3 mg/dL) Cancelled 0.9 Est GFR ( Amer) (mL/min) Cancelled >60 Est GFR (Non-Af Amer) (mL/min) Cancelled >60 Glucose (70 - 110 mg/dL) Cancelled 166 Lactic Acid (0.4 - 2.0 mmol/L) 1.0 Plasma Calcium (8.5 - 10.1 mg/dL) Cancelled 8.9 Phosphorus (2.5 - 4.9 mg/dL) 3.1 Plasma Magnesium (1.8 - 2.4 mg/dL) 2.2 Total Bilirubin (0.0 - 1.0 mg/dL) 0.3 AST (15 - 37 U/L) 16 ALT (12 - 78 U/L) 40 Alkaline Phosphatase (46 - 116 U/L) 74 Total Protein (6.4 - 8.2 g/dL) 7.5 Albumin (3.3 - 5.0 g/dL) 3.6 Prealbumin Pending Hematology WBC (4.5 - 11.5 K/uL) 13.8 RBC (4.50 - 5.90 M/uL) 4.66 Hgb (13.5 - 17.5 gm/dL) 13.7 Hct (41.0 - 53.0 %) 40.7 MCV (80 - 100 fL) 87 MCH (26 - 34 pg) 30 RDW (11.6 - 14.8 %) 12.9 Neut % (Auto) (50 - 75 %) 86.2 Lymph % (Auto) (25 - 40 %) 10.2 [place] % (Auto) (3 - 14 %) 3.4 Eos % (Auto) (0 - 4 %) 0 Baso % (Auto) (0 - 2 %) 0.2 Plt Count, EDTA (150 - 400 K/uL) 247 PUBS MCHC (31 - 37 g/dL) [address] of his abdomen shows mesenteric lymphadenopathy, thickening of the terminal ileum, suspected fistula between the terminal ileum and the mid sigmoid. Minimal fluid in the patient's pelvis. Upright abdominal x-ray this morning is interpreted as ileus versus partial small bowel obstruction. Assessment and Plan Problem List 1. CROHN'S FLARE Plan No evidence of definitive diagnosis of Crohn's disease on prior biopsies. We will order Gastrografin small bowel follow-through. 2. ABDOMINAL PAIN Plan Abdominal pain controlled presently with analgesics. No acute abdomen. 3. Nausea & vomiting Plan Nausea and vomiting controlled at present. Continue present management 4. Diarrhea in adult patient Plan Diarrhea presently controlled. Continue present management.
[2017-02-10 14:15] VITALS: BP 114/58
--- NOTE | 2017-02-10 16:42 | DIAGNOSTIC IMAGING REPORT ---
PROCEDURE: CT ABDOMEN/PELVIS W/O CONTRAST INDICATION: Follow-up bowel obstruction and possible Crohn disease. Assess for fistula. TECHNIQUE: Oral contrast water-soluble gastrographin contrast ingested earlier in the day. Intravenous contrast was not utilized for the study. Axial images were obtained of the entire abdomen and pelvis with sagittal and coronal reformations. COMPARISON: Comparison is made to small bowel series earlier today (02/10/2017) and CT abdomen pelvis (02/09/2017). FINDINGS: ABDOMEN: Marked improvement with sub total resolution of inflammatory changes of the distal ileum. There is no evidence of obstruction and no evidence of fistula. Appendix is normal. There are a few mildly prominent mesenteric lymph nodes. Gallbladder, liver, spleen, pancreas, kidneys, and aorta are normal. Minor atelectasis at the right lung base. PELVIS: Sigmoid colon and bowel pattern are normal. No evidence of free fluid. No evidence of fistula. IMPRESSION: 1. Marked improvement with sub total resolution of inflammatory changes of the ileum. While etiology is not entirely clear, rapid resolution is not typical for Crohn disease. As such, underlying processes (e.g., vasculitis, acute obstruction) might also be considered. 2. No evidence of obstruction. 3. No evidence of fistula. 4. Findings discussed with Dr. Gonzalez and Dr. Doug Cornejo. All CT scans at this facility use dose modulation, iterative reconstruction, and/or weight-based dosing when appropriate to reduce radiation dose to as low as reasonably achievable.
--- NOTE | 2017-02-10 16:46 | DIAGNOSTIC IMAGING REPORT ---
PROCEDURE: XR SBFT WITH GASTROGRAFIN INDICATION: Partial obstruction. Possible Crohn disease and fistula. TECHNIQUE: Single contrast study. Fluoroscopy time 1.8 minutes 1005.50 mGy. 120 ml of Gastrografin contrast material infused and 10 images acquired over 45-minute time interval. COMPARISON: Comparison is made to CT abdomen pelvis on 02/09/2017 and abdominal radiograph earlier in the day. FINDINGS: Preliminary hand thermal cutter view demonstrates mildly prominent small bowel loops in the right abdomen. Small bowel transit is normal with contrast reaching the ascending colon and 45 minutes. There is mild residual mucosal thickening of the distal ileum bowel loops and terminal ileum, but no evidence of obstruction. IMPRESSION: 1. Interval resolution of small bowel obstruction. 2. Mild residual mucosal thickening of distal small bowel loops. 3. While there is no definite evidence of fistula, CT abdomen pelvis is recommended to confirm. 4. Findings discussed with Dr. Gonzalez.
--- NOTE | 2017-02-10 16:46 | DIAGNOSTIC IMAGING REPORT ---
PROCEDURE: XR SBFT WITH GASTROGRAFIN INDICATION: Partial obstruction. Possible Crohn disease and fistula. TECHNIQUE: Single contrast study. Fluoroscopy time 1.8 minutes 1005.50 mGy. 120 ml of Gastrografin contrast material infused and 10 images acquired over 45-minute time interval. COMPARISON: Comparison is made to CT abdomen pelvis on 02/09/2017 and abdominal radiograph earlier in the day. FINDINGS: Preliminary hides inspector view demonstrates mildly prominent small bowel loops in the right abdomen. Small bowel transit is normal with contrast reaching the ascending colon and 45 minutes. There is mild residual mucosal thickening of the distal ileum bowel loops and terminal ileum, but no evidence of obstruction. IMPRESSION: 1. Interval resolution of small bowel obstruction. 2. Mild residual mucosal thickening of distal small bowel loops. 3. While there is no definite evidence of fistula, CT abdomen pelvis is recommended to confirm. 4. Findings discussed with Dr. Gonzalez.
[2017-02-10 18:05] VITALS: BP 117/69
[2017-02-11] VITALS (10 sets, daily range): BP systolic 110–126; BP diastolic 50–76
--- NOTE | 2017-02-11 06:20 | Progress Note ---
Subjective General 27-year-old male admitted with abdominal pain and suspected small bowel obstruction/Crohn's disease. Patient in the past has undergone 2 colonoscopies, an upper GI endoscopy, pedal exam, and apparently biopsies obtained with no evidence of Crohn's disease. Yesterday a Gastrografin small bowel follow- through followed by limited CT of his abdomen was normal. No evidence of Crohn' s disease no evidence of obstruction. Patient has had at least 4 bowel movements since the Gastrografin small bowel follow-through. A lazy discussion was had with the patient concerning our findings. The only recommendation I have is to perform a diagnostic laparoscopy to evaluate the terminal ileum to see if there is any creeping fat. 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 Patient would like to proceed with diagnostic laparoscopy here at [facility]. Physical Exam Vital Signs / I&Os Vital Signs Date Time Temp Pulse Resp B/P Pulse O2 O2 Flow FiO2 Ox Delivery Rate 02/11 0226 97.5 78 18 124/69 98 Room Air 0 I&O 02/10 0800 02/10 1600 02/11 0000 Intake Total 0 3927 Output Total 903 034 9369 Balance -925 -300 2677 General Appearance Oriented X3, Cooperative, No acute distress Lungs Clear to auscultation Neck Supple, No JVD Cardiovascular Regular rate and rhythm Abdomen Normal bowel sounds, slight tenderness to palpation. No masses appreciable Extremities No edema Skin warm and dry. No peripheral cyanosis Neurological No lateralizing signs Psych/Mental Status Mood normal LAB Results Laboratory Tests 02/11 0520 Hematology WBC (4.5 - 11.5 K/uL) 15.7 RBC (4.50 - 5.90 M/uL) 4.28 Hgb (13.5 - 17.5 gm/dL) 12.6 Hct (41.0 - 53.0 %) 38.1 MCV (80 - 100 fL) 89 MCH (26 - 34 pg) 29 RDW (11.6 - 14.8 %) 13.0 Neut % (Auto) (50 - 75 %) 84.6 Lymph % (Auto) (25 - 40 %) 8.6 [place] % (Auto) (3 - 14 %) 6.4 Eos % (Auto) (0 - 4 %) 0 Baso % (Auto) (0 - 2 %) 0.4 Plt Count, EDTA (150 - 400 K/uL) 218 PUBS MCHC (31 - 37 g/dL) 33 Microbiology Date/Time Procedure - Status Source Growth 02/10 113 Escherichia coli Shiga Toxins EIA - RECD STOOL 02/10 113 Campylobacter Culture - RECD STOOL 02/10 113 Salmonella/Shigella Culture - RECD STOOL 02/10 113 Ova and Parasites - RECD STOOL 02/10 113 Clostridium difficile Toxin A & B - COMP STOOL 02/10 113 Specimen Source - COMP STOOL 02/10 113 Stool Leukocytes - COMP STOOL Imaging IMAGING: Gastrografin small bowel follow-through no evidence of obstruction, contrast material into the right colon within 20 min. of exam. Followed by limited CT of his abdomen showing no evidence of enteric - colic fistula and no gross evidence of Crohn's disease. Assessment and Plan Problem List 1. CROHN'S FLARE Plan No gross evidence of Crohn's disease on Gastrografin small bowel follow-through and limited CT of his abdomen. We'll discuss the possibility of performing anoxic laparoscopy to evaluate the terminal ileum for creeping fat. Patient would like to proceed. The procedure is been explained to the patient including the risks and benefits. We will schedule him accordingly. 2. ABDOMINAL PAIN Plan The patient still has abdominal discomfort but this is pretty much normal for him and his chronic ongoing issue. 3. Nausea & vomiting Plan Nausea and vomiting have resolved 4. Diarrhea in adult patient Plan Diarrhea has resolved
--- NOTE | 2017-02-11 06:20 | Progress Note ---
Subjective General 27-year-old male admitted with abdominal pain and suspected small bowel obstruction/Crohn's disease. Patient in the past has undergone 2 colonoscopies, an upper GI endoscopy, pedal exam, and apparently biopsies obtained with no evidence of Crohn's disease. Yesterday a Gastrografin small bowel follow- through followed by limited CT of his abdomen was normal. No evidence of Crohn' s disease no evidence of obstruction. Patient has had at least 4 bowel movements since the Gastrografin small bowel follow-through. A lazy discussion was had with the patient concerning our findings. The only recommendation I have is to perform a diagnostic laparoscopy to evaluate the terminal ileum to see if there is any creeping fat. 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 Patient would like to proceed with diagnostic laparoscopy here at [facility]. Physical Exam Vital Signs / I&Os Vital Signs Date Time Temp Pulse Resp B/P Pulse O2 O2 Flow FiO2 Ox Delivery Rate 02/11 0226 97.5 78 18 124/69 98 Room Air 0 I&O 02/10 0800 02/10 1600 02/11 0000 Intake Total 0 3927 Output Total 685 436 8227 Balance -925 -300 2677 General Appearance Oriented X3, Cooperative, No acute distress Lungs Clear to auscultation Neck Supple, No JVD Cardiovascular Regular rate and rhythm Abdomen Normal bowel sounds, slight tenderness to palpation. No masses appreciable Extremities No edema Skin warm and dry. No peripheral cyanosis Neurological No lateralizing signs Psych/Mental Status Mood normal LAB Results Laboratory Tests 02/11 0520 Hematology WBC (4.5 - 11.5 K/uL) 15.7 RBC (4.50 - 5.90 M/uL) 4.28 Hgb (13.5 - 17.5 gm/dL) 12.6 Hct (41.0 - 53.0 %) 38.1 MCV (80 - 100 fL) 89 MCH (26 - 34 pg) 29 RDW (11.6 - 14.8 %) 13.0 Neut % (Auto) (50 - 75 %) 84.6 Lymph % (Auto) (25 - 40 %) 8.6 [place] % (Auto) (3 - 14 %) 6.4 Eos % (Auto) (0 - 4 %) 0 Baso % (Auto) (0 - 2 %) 0.4 Plt Count, EDTA (150 - 400 K/uL) 218 PUBS MCHC (31 - 37 g/dL) 33 Microbiology Date/Time Procedure - Status Source Growth 02/10 113 Escherichia coli Shiga Toxins EIA - RECD STOOL 02/10 113 Campylobacter Culture - RECD STOOL 02/10 113 Salmonella/Shigella Culture - RECD STOOL 02/10 113 Ova and Parasites - RECD STOOL 02/10 113 Clostridium difficile Toxin A & B - COMP STOOL 02/10 113 Specimen Source - COMP STOOL 02/10 113 Stool Leukocytes - COMP STOOL Imaging IMAGING: Gastrografin small bowel follow-through no evidence of obstruction, contrast material into the right colon within 20 min. of exam. Followed by limited CT of his abdomen showing no evidence of enteric - colic fistula and no gross evidence of Crohn's disease. Assessment and Plan Problem List 1. CROHN'S FLARE Plan No gross evidence of Crohn's disease on Gastrografin small bowel follow-through and limited CT of his abdomen. We'll discuss the possibility of performing anoxic laparoscopy to evaluate the terminal ileum for creeping fat. Patient would like to proceed. The procedure is been explained to the patient including the risks and benefits. We will schedule him accordingly. 2. ABDOMINAL PAIN Plan The patient still has abdominal discomfort but this is pretty much normal for him and his chronic ongoing issue. 3. Nausea & vomiting Plan Nausea and vomiting have resolved 4. Diarrhea in adult patient Plan Diarrhea has resolved
--- NOTE | 2017-02-11 07:00 | Progress Note ---
Subjective General Note Date: February 11, 2017 Admission Date: February 09, 2017 Hospital Day: 3 PCP: Unknown Status: AC inpatient Advanced Directive: FULL CODE Room: 211- Brief history 27-year-old white male with a with a prior medical history of probable Crohn's. Patient presented to the emergency department. [facility] with complaint of abdominal pain, pain have been persistent over the past 3-4 days. Patient states that he' s had history of inflammatory changes. His bowels. Patient has been seen by gastroenterology who is recommended therapy. Patient when seen in the ED, was found with an exam for an acute abdomen. General surgery was consulted. Patient was put on nothing by mouth. CT of abdomen was done. Showed inflammatory changes at the cecum. Patient symptoms and findings suggestive of Crohn's. Secondary to the above, the patient was admitted by Doug Cornejo M.D. for further evaluation and treatment. Subjective Patient was anxious to go home yesterday. Patient having the procedure performed today. Patient had a laparotomy, exploratory scheduled. Patient states that the identification of causation is important to him. Patient continues to have difficulty with pain in the abdominal region. Patient has having better pain control. Patient had 1 runny diarrhea but no emesis. Physical Exam Vital Signs / I&Os Vital Signs Date Time Temp Pulse Resp B/P Pulse O2 O2 Flow FiO2 Ox Delivery Rate 02/11 0226 97.5 78 18 124/69 98 Room Air 02/11 0016 98.2 78 16 110/55 99 Room Air 02/10 1805 98.1 89 20 117/69 99 Room Air 02/10 1415 97.7 78 20 114/58 98 Room Air 02/10 1045 95 02/10 1022 97.5 69 21 116/64 96 Room Air 0.0 02/10 0709 97.9 85 22 104/45 95 Room Air 0.0 I&O 02/10 0800 02/10 1600 02/11 0000 Intake Total 0 3927 Output Total 277 052 6417 Balance -925 -300 2677 General Appearance intermittent periods of pain HEENT EOMI Lungs Clear to auscultation Neck No JVD Cardiovascular Normal S1 and S2 Abdomen no distention, tenderness to palpation. No rebound Extremities Normal pulses, No tenderness Skin No Rashes Neurological Normal speech, Cranial nerves intact Psych/Mental Status Mood normal LAB Results Laboratory Tests 02/11 0520 Chemistry Plasma Sodium (136 - 145 mmol/L) 143 Plasma Potassium (3.5 - 5.1 mmol/L) 4.6 Plasma Chloride (98 - 107 mmol/L) 107 CO2 (Enzymatic) (21 - 32 mmol/L) 26 BUN (7 - 18 mg/dL) 12 Creatinine (0.6 - 1.3 mg/dL) 0.8 Est GFR ( Amer) (mL/min) >60 Est GFR (Non-Af Amer) (mL/min) >60 Glucose (70 - 110 mg/dL) 172 Plasma Calcium (8.5 - 10.1 mg/dL) 8.4 Plasma Magnesium (1.8 - 2.4 mg/dL) 2.2 Total Bilirubin (0.0 - 1.0 mg/dL) 0.1 AST (15 - 37 U/L) 16 ALT (12 - 78 U/L) 39 Alkaline Phosphatase (46 - 116 U/L) 67 Total Protein (6.4 - 8.2 g/dL) 6.6 Albumin (3.3 - 5.0 g/dL) 3.5 Hematology WBC (4.5 - 11.5 K/uL) 15.7 RBC (4.50 - 5.90 M/uL) 4.28 Hgb (13.5 - 17.5 gm/dL) 12.6 Hct (41.0 - 53.0 %) 38.1 MCV (80 - 100 fL) 89 MCH (26 - 34 pg) 29 RDW (11.6 - 14.8 %) 13.0 Neut % (Auto) (50 - 75 %) 84.6 Lymph % (Auto) (25 - 40 %) 8.6 [place] % (Auto) (3 - 14 %) 6.4 Eos % (Auto) (0 - 4 %) 0 Baso % (Auto) (0 - 2 %) 0.4 Plt Count, EDTA (150 - 400 K/uL) 218 PUBS MCHC (31 - 37 g/dL) 33 Assessment and Plan Problem List 1. CROHN'S FLARE Plan Unlikely Crohn's given the resolution of the inflammatory component in the terminal ileum. Patient has been on a steroid, which could be remarkable for resolution. The exploratory laparotomy is for identification. Plan to proceed. 2. ABDOMINAL PAIN Plan Chronic persistent abdominal pain. Multiple rounds of diarrhea. Follow-up with gastroenterology 3. Nausea & vomiting Plan Nausea and vomiting is resolving. Improved function in the bowel. 4. Diarrhea in adult patient Plan Diarrhea this morning. Continue to modulate the bowel movements. May consider using a stool bulking agent. E&M Codes Rounding: Inpt-Moderate/26007
[2017-02-11] MEDS ORDERED: HYCET1 ML PO (14:04)
--- NOTE | 2017-02-11 14:05 | Provider's Discharge Care Plan ---
Problem, Goal, Plan Problem List 1. S/P DX LAPROSCOPY Goals: Diagnostic testing Instructions: Follow up as directed, Take meds as directed
--- NOTE | 2017-02-11 14:05 | Provider's Discharge Care Plan ---
Problem, Goal, Plan Problem List 1. S/P DX LAPROSCOPY Goals: Diagnostic testing Instructions: Follow up as directed, Take meds as directed
--- NOTE | 2017-02-11 14:21 | Operative Report ---
Operative Report Date of Surgery: 02/11/17 Preoperate Diagnosis: chronic abdominal pain rule out Crohn's disease Postoperative Diagnosis: while terminal ileitis Surgeon: Roland Gonzalez MD Risk Control Field Representative Surgeon: none Procedure Performed: Diagnostic laparoscopy Anesthesia: Gen. endotracheal Indications: 27-year-old male with ongoing chronic intermittent right lower quadrant abdominal pain. Prior to his admission he is had extensive workup to include colonoscopy with biopsies, upper GI endoscopy, and pill cam. 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 The following morning of admission, a Gastrografin small bowel follow- through was performed which showed no evidence of obstruction. This was followed by limited CAT scan of the patient's abdomen which showed no evidence of enterocolic suspected fistula. There was complete resolution of the thickened process of the terminal ileum. The patient was given the option of diagnostic laparoscopy to evaluate the terminal ileum to see if there was any creeping fat consistent with Crohn's disease. We also discussed appendectomy. Patient did not want to have his appendix removed. FINDINGS: The appendix appeared grossly normal as did the cecum. The distal portion of the terminal ileum showed evidence of mild hyperemia of the antimesenteric border. The terminal ileum appeared slightly thickened compared to the remaining small bowel. There was no gross evidence of creeping fat consistent with Crohn's disease. There is no gross evidence of mesenteric adenopathy. Surgical Technique: Patient brought to the operating room. Placed in the dorsal supine position. Patient underwent general endotracheal anesthesia by the anesthesiology department. After proper anesthesia had taken effect patient's abdomen was prepped using Betadine and draped in a sterile fashion. An infraumbilical incision made clear down to skin and subcutaneous tissue and varies needle was inserted through this site into the abdominal cavity. After ascertaining its appropriate position with suction irrigation and pneumoperitoneum obtained using CO2 insufflation trocar suture 14 15 mmHg pressure. Once this pressure was reached varies needle was removed and replaced the 10 mm trocar. The trocar removed previously behind which a laparoscopic video camera was introduced into the abdominal cavity. Under direct visualization a 5 mm trocar was placed in the left lower quadrant. A separate 5 mm trocar was placed in the left mid abdomen. Each entered the abdominal cavity under direct visualization. Trochars removed leaving the sleeve behind which instrumentation was introduced. The aforementioned findings noted. The abdominal cavity was irrigated with warm normal saline antibiotic solution. The irrigant suctioned out. The pneumoperitoneum released. All trochars removed from the abdominal cavity. All trochar sites were approximated using 4-0 subdermal Polysorb suture. Steri- Strips were placed over the wound. Sterile occlusive dressings were placed over each surgical site. Patient was extubated and transferred to recovery room in stable condition. There were no intraoperative complications. CONDITION: Stable to postoperative anesthesia recovery room COMPLICATIONS: None ESTIMATED BLOOD LOSS: None FLUIDS: 250 cc of lactated Ringer's DRAINS: None SPECIMEN: None
--- NOTE | 2017-02-11 17:18 | Discharge Summary ---
Discharge Summary Report Admit Date 02/09/17 Discharge Date 02/11/17 Admission Diagnosis 1. Crohn's flare. 2. Abdominal pain. 3. Nausea, vomiting. 4. Diarrhea in an adult patient. Discharge Diagnosis 1. Crohn's flare undetermined 2. Abdominal pain. 3. Nausea, vomiting resolved 4. Diarrhea in an adult patient. 5. S/P diagnostic laparoscopy Brief History 27-year-old white male with a with a prior medical history of probable Crohn's. Patient presented to the emergency department. [facility] with complaint of abdominal pain, pain have been persistent over the past 3-4 days. Patient states that he' s had history of inflammatory changes. His bowels. Patient has been seen by gastroenterology who is recommended therapy. Patient when seen in the ED, was found with an exam for an acute abdomen. General surgery was consulted. Patient was put on nothing by mouth. CT of abdomen was done. Showed inflammatory changes at the cecum. Patient symptoms and findings suggestive of Crohn's. Secondary to the above, the patient was admitted by Doug Cornejo M.D. for further evaluation and treatment. For history of present illness began 2-3 days prior to admission when the patient had increasing pain in the abdominal region. Patient had poor by mouth. Patient had multiple bouts of vomiting. Patient states he always has loose tube with increase in stooling occurred. Patient's had previous extensive workup in the past for the abdominal pain and progressive diarrhea. Patient was at one time thought to have had Crohn's. Over year ago. Patient was hospitalized at [facility]. He was followed by GI at that time. Multiple extensive procedures were done including a colonoscopy, endoscopy, biopsies along with a Pill cam. There was no definitive diagnosis. Hospital Course Patient was admitted with acute on chronic right lower quadrant abdominal pain. 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 The following morning of admission, a Gastrografin small bowel follow-through was performed which showed no evidence of obstruction. This was followed by limited CAT scan of the patient's abdomen which showed no evidence of enterocolic suspected fistula. There was complete resolution of the thickened process of the terminal ileum. The patient was given the option of diagnostic laparoscopy to evaluate the terminal ileum to see if there was any creeping fat consistent with Crohn's disease. The exploratory diagnostic laparoscopic procedure is performed. This showed a normal appendix, however, did show evidence of hyperemia and slight thickening at the terminal ileum. No creeping fat signs. There is also no signs of any adenopathy. Given the initial diagnosis of Crohn's flare. Patient was started on total peritoneal nutritional support. This continued for 48 hours. Patient was also on fluid hydration and placed on nothing by mouth. Following procedure; Patient was started on clear liquids which was advanced to tolerance. Patient expressed improvement in his condition overall. Patient was able able to ambulate without considerable pain. Patient reported that he was ready to go home following the procedure. General Appearance Oriented X3, Cooperative HEENT Atraumatic, PERRLA, EOMI, Mucous membran moist/pink Lungs Normal air movement Cardiovascular Normal S1, Normal S2, No murmurs Abdomen Soft, generalized tenderness. Skin No Breakdown Neurological Cranial nerves 3-12 NL Lab/Imaging Laboratory Tests 02/11 0520 Chemistry Plasma Sodium (136 - 145 mmol/L) 143 Plasma Potassium (3.5 - 5.1 mmol/L) 4.6 Plasma Chloride (98 - 107 mmol/L) 107 CO2 (Enzymatic) (21 - 32 mmol/L) 26 BUN (7 - 18 mg/dL) 12 Creatinine (0.6 - 1.3 mg/dL) 0.8 Est GFR ( Amer) (mL/min) >60 Est GFR (Non-Af Amer) (mL/min) >60 Glucose (70 - 110 mg/dL) 172 Plasma Calcium (8.5 - 10.1 mg/dL) 8.4 Plasma Magnesium (1.8 - 2.4 mg/dL) 2.2 Total Bilirubin (0.0 - 1.0 mg/dL) 0.1 AST (15 - 37 U/L) 16 ALT (12 - 78 U/L) 39 Alkaline Phosphatase (46 - 116 U/L) 67 Total Protein (6.4 - 8.2 g/dL) 6.6 Albumin (3.3 - 5.0 g/dL) 3.5 Hematology WBC (4.5 - 11.5 K/uL) 15.7 RBC (4.50 - 5.90 M/uL) 4.28 Hgb (13.5 - 17.5 gm/dL) 12.6 Hct (41.0 - 53.0 %) 38.1 MCV (80 - 100 fL) 89 MCH (26 - 34 pg) 29 RDW (11.6 - 14.8 %) 13.0 Neut % (Auto) (50 - 75 %) 84.6 Lymph % (Auto) (25 - 40 %) 8.6 Cook % (Auto) (3 - 14 %) 6.4 Eos % (Auto) (0 - 4 %) 0 Baso % (Auto) (0 - 2 %) 0.4 Plt Count, EDTA (150 - 400 K/uL) 218 PUBS MCHC (31 - 37 g/dL) 33 Discharge Instructions/Meds Patient was discharged home on a diet of clear liquids with advancement to tolerance. Patient was also recommended to have follow-up with his swatch paster. Follow-up with gastroenterology and be seen as soon within 3-5 days.. Recommendations also has recommendations to be seen by his primary care provider within 3-5 days.. Patient is discharged home on a prednisone taper. He is also given hydrocodone 7.5, 325 mg tabs as needed for pain. Patient was told and informed that he should return to the emergency department or urgent care clinic with intractable pain, vomiting, diarrhea or any further worsening or emergent concerns.
[2017-02-11] MEDS ORDERED: PREDNISONE20 MG PO (17:21)
--- NOTE | 2017-02-11 17:28 | Provider's Discharge Care Plan ---
Problem, Goal, Plan Problem List 1. CROHN'S FLARE Goals: unlikely that this is Crohn's. Procedure performed did not show evidence of Crohn's disease. May be other associated disorders including possible vasculitis. Instructions: this should be followed up with gastroenterology. 2. ABDOMINAL PAIN Goals: Improve disease control Instructions: Follow up as needed, Avoid processed foods, Reduce stress 3. Nausea & vomiting Goals: Improve disease control Instructions: Follow up as directed, Reduce stress 4. Diarrhea in adult patient Goals: Improve disease control, Improve nutrition status Instructions: Follow up as directed 5. Acute colitis Goals: this is another etiology at this cause inflammation of the colon or terminal ileum. The consider other alternatives. Instructions: Take meds as directed 6. S/P DX LAPROSCOPY Goals: found thickening of the terminal ileum along with hyperemia, no evidence of Crohn's Instructions: Follow up as directed
[2017-02-11] MEDS ORDERED: LEVAQUIN500 MG PO (18:00)
== END 2017-02-11 18:45 | disposition home or self-care (01) | DRG 229 ==
LOC: ED SRH 06:17 → TRANS SRH 09:10 → ACUTE2 SRH 09:12
PROVIDERS: Specialist; ADMIT Family Medicine
PROC: 02HV33Z Insertion of Infusion Device into Superior Vena Cava, Percutaneous Approach (ICD-10-PCS; 2017-02-09)
PROC: 3E0436Z Introduction of Nutritional Substance into Central Vein, Percutaneous Approach (ICD-10-PCS; 2017-02-09)
PROC: 0WJG4ZZ Inspection of Peritoneal Cavity, Percutaneous Endoscopic Approach (ICD-10-PCS; principal; 2017-02-11 12:45)
DX: K50.00 Crohn's disease of small intestine without complications (principal); R11.2 Nausea with vomiting, unspecified; F17.210 Nicotine dependence, cigarettes, uncomplicated
CPT/HCPCS: 50002; 60001; 70002; 80102; 80248; 82794; 83125; 83463; 83587; 83982; 84038; 90004; 90074; 90098; 90100; 90101; 90112; 90124; 90455; 92031; 92235; 92530; 92720; 92740; 95059; 99262

== ENCOUNTER 2017-03-23 15:25 | Emergency (ER) | payer OTHER ==
[~2017-03-23 15:25] MED LIST: HYCET1 ML PO; LEVAQUIN500 MG PO; PREDNISONE20 MG PO
--- NOTE | 2017-03-23 16:08 | DIAGNOSTIC IMAGING REPORT ---
PROCEDURE: XR KNEE 4 VIEWS - LEFT INDICATION: SHOT NAIL INTO KNEE, ALREADY REMOVED TECHNIQUE: Four views. COMPARISON: None. FINDINGS: Osseous structures and joint spaces are normal. IMPRESSION: 1. Normal left knee.
--- NOTE | 2017-03-23 16:28 | ED ORDER SUMMARY ---
..... Patient: FRANCOIS EVANS OrderSheet VisitID: [id number] [address] [place] [address] 27y, M Registration Date/Time: 03/23/2017 ORDER SHEET Weight: 90.7 kg (stated) Allergies: PCN GENERAL ORDERS: Knee 4V Left Urgent (15:31 03/23/2017 HBivens A.R.N.P.) (Ack 15:38 PWeiler ER Tech1) (15:39 SRoberts R.N.) MEDICATION ORDERS: Hydrocodone-APAP PO 5/325 mg (NOW, HIGH ALERT MEDICATION) (15:31 03/23/2017 HBivens A.R.N.P.) (Ack 15:39 SRoberts R.N.) (15:52 SRoberts R.N.) Tdap IM 0.5 mL (NOW) (15:31 03/23/2017 HBivens A.R.N.P.) (15:37 KWilliams R.N.) IV FLUIDS: ORDER SHEET NOTES: [Electronically signed by Angela Leblanc R.N. (17:02 03/23/2017)] [Electronically signed by Delma VazquezR.N.P. (22:23 03/23/2017)] [Electronically locked/signed by Angela Leblanc R.N. (17:02 03/23/2017)]
--- NOTE | 2017-03-23 16:28 | ED ORDER SUMMARY ---
..... Patient: FRANCOIS EVANS OrderSheet [facility] VisitID: [id number] [address] [place] [address] 27y, M Registration Date/Time: 03/23/2017 ORDER SHEET Weight: 90.7 kg (stated) Allergies: PCN GENERAL ORDERS: Knee 4V Left Urgent (15:31 03/23/2017 HBivens A.R.N.P.) (Ack 15:38 PWeiler ER Tech1) (15:39 SRoberts R.N.) MEDICATION ORDERS: Hydrocodone-APAP PO 5/325 mg (NOW, HIGH ALERT MEDICATION) (15:31 03/23/2017 HBivens A.R.N.P.) (Ack 15:39 SRoberts R.N.) (15:52 SRoberts R.N.) Tdap IM 0.5 mL (NOW) (15:31 03/23/2017 HBivens A.R.N.P.) (15:37 KWilliams R.N.) IV FLUIDS: ORDER SHEET NOTES: [Electronically signed by Angela Leblanc R.N. (17:02 03/23/2017)] [Electronically signed by Delma VazquezR.N.P. (22:23 03/23/2017)] [Electronically locked/signed by Angela Leblanc R.N. (17:02 03/23/2017)]
--- NOTE | 2017-03-23 16:28 | ED CLINICAL REPORT ---
Clinical Report - Physicians/Mid Levels [facility] [address] [place] [address] 03/23/2017 15:27 Patient: FRANCOIS EVANS Time Seen: 1529; upon arrival, initial patient contact, initial documentation, patient care assumed. Arrived- By private vehicle. Historian- patient. HISTORY OF PRESENT ILLNESS Chief Complaint: Injury to left knee. The injury happened today. The patient sustained a puncture wound from a nail. (shot nail into knee with nail gun, thinks it went in about 1/2 inch, pulled it out himself). No redness noted, red streak noted, swelling noted, drainage noted or fever noted. No increased pain noted or numbness noted. Occurred at work. Patient is experiencing severe pain. Patient denies injury to the head or neck. No other injury. REVIEW OF SYSTEMS The patient complains of pain on weight bearing. No swelling, tingling, weakness, numbness or suspected foreign body. No skin laceration. All systems otherwise negative, except as recorded above. PAST HISTORY See nurses notes. ( PAST HISTORY Abrasion(s). Substance Abuse. Crush Injury, Upper Extremity. Tetanus Status. Otitis Media. URI. Immunizations. Additional Surgeries: no known surgeries.). Last tetanus immunization was more than 5 years ago. SOCIAL HISTORY Light tobacco smoker. Occasional alcohol use. History of occasional drug use: marijuana. Recently used drugs days ago. No recent travel. Is a local resident. FAMILY HISTORY No significant family medical history. ADDITIONAL NOTES The nursing notes have been reviewed with agreement regarding the chief complaint, HPI, ROS and patient medications and allergies. PHYSICAL EXAM Vital Signs: 03/23/2017 15:32 BP: 119/85. HR: 76. RR: 22. O2 saturation: 100%. Temp: 97.9 F. Pain level now: 9/10. Have been reviewed as normal and appear to be correct. Appearance: Alert. Oriented X3. No acute distress. Head: Head atraumatic. Eyes: Pupils equal, round and reactive to light. Eyes normal inspection. Respiratory: No respiratory distress. Skin: Skin intact. Skin warm and dry. Normal skin color. Normal skin turgor. Extremities: Left knee: moderate tenderness, small abrasion and single puncture wound located in the infrapatellar area. Neurovascular intact distally. (pw appears more like linear abrasion approx 1/2 long, no active bleeding). No ligamentous laxity present. No joint effusion. No erythema, swelling, laceration, ecchymosis or foreign body. No deformity. No limitation in ROM. Lower extremity exam otherwise negative. Extremities otherwise negative. Gait: Abnormal gait. Gait not tested due to pain. Neuro, Vascular and Tendons: Vascular status intact. Sensation intact. Motor intact. Tendon function intact. Neuro: Oriented X 3. No motor deficit. No sensory deficit. Note: isolated injury to knee. LABS, X-RAYS, AND EKG X-Rays: Left knee negative. Lt Knee X-ray: (IMPRESSION: 1. Normal left knee. Electronically Final signed by:Brennan Alexander MD 03/23/2017 4:08:54 PM). The X-rays were interpreted by the radiologist and contemporaneously by me. Interpretation time: 16:26. PROGRESS AND PROCEDURES Course of Care: 16:52 03/23/17. L&I paperwork completed. Patient counseled in person regarding the patient's stable condition, test results and diagnosis. 16:26. Differential Diagnosis: Other possible considerations: pw, osteomyelitis, fx, tendon injury. Above considerations are based on history, physical exam, reassessment and X-Ray data. Differential diagnosis was discussed with patient. Disposition: Discharged home in good and improved condition (16:27). Condition: good and stable. CLINICAL IMPRESSION Single superficial puncture wound to the left knee; foreign body present. Not penetrating into body cavity. No infected puncture wound. Treatment of puncture wound not delayed. INSTRUCTIONS Protect wound and keep wound area clean. Soak in warm soapy water twice daily. Apply neosporin twice daily. Do not work today, tomorrow. Warnings: TETANUS: You were given a tetanus shot during your visit. Make a note for future reference. GENERAL WARNINGS: Return or contact your physician immediately if your condition worsens or changes unexpectedly, if not improving as expected, or if other problems arise. Specifically return if problem worsens. Prescription Medications: Cipro 500 mg: take 1 tab orally every 12 hours for 10 days. Dispense twenty (20). No refills. Substitution is permissible. Ultram 50 mg tablets: take 1-2 orally every 6 hours as needed for pain. Dispense twenty (20). No refills. Substitution is permissible. Follow-up: Follow up with your doctor in about three days as needed and for wound check. Call for an appointment. Summary of care provided to patient. Understanding of the discharge instructions verbalized by patient. (Electronically signed by Delma Vazquez A.R.N.P. 03/23/2017 22:23)
--- NOTE | 2017-03-23 16:28 | ED NURSING NOTES ---
Clinical Report - Nurses [facility] [address] [place] [address] 03/23/2017 15:27 Patient: FRANCOIS EVANS TRIAGE Triage time 15:32. Acuity: LEVEL 3. Chief Complaint: INJURY TO LEFT KNEE. Alert. No acute distress. SEPSIS SCREEN: Sepsis Screen: negative. Negative (no infection suspected/documented). VICKY COMA SCORE: Vicky Coma Scale: 15- eyes open spontaneously (4); best verbal response- oriented x 4 (5); best motor response- obeys commands (6). --15:38 Angela Leblanc R.N. 15:32 03/23/17. BP: 119/85. HR: 76. RR: 22. O2 saturation: 100%. Temp: 97.9 F. Pain level now: 06/27. --15:38 Angela Leblanc R.N. Weight: 90.7 kg stated. Height/Length: 71 inches Per Patient. BMI: 27.9. --15:36 Angela Leblanc R.N. Medications PredniSONE Oral 10 mg, daily. --15:33 Angela Leblanc R.N. Medication/allergy information source: the patient. --15:38 Angela Leblanc R.N. Allergies PCN. --15:33 Angela Leblanc R.N. History Arrived by private vehicle. Historian: patient. Accompanied by family. No primary care physician. This occurred just prior to arrival. Occurred at work. Mechanism of injury: (Nail from nailgun, papulled from skin prior to arrival). Treatment PBX INSPECTOR: None. PAST MEDICAL HX: Tetanus status: unknown. ( chronns?). SURGERY HX: Laparotomy. SOCIAL HX: Light tobacco smoker (cigarette)- less than 1/2 a pack per day. Occasional alcohol use. History of drug use: marijuana. Recently used drugs days ago. FALL RISK ASSESSMENT: Fall risk assessment completed. No fall risk identified. NUTRITIONAL RISK ASSESSMENT: The nutritional risk assessment revealed no deficiencies. FUNCTIONAL ASSESSMENT: Functional assessment: no impairments noted. LEARNING NEEDS ASSESSMENT: The learning needs assessment revealed no barriers. SKIN INTEGRITY ASSESSMENT: Skin integrity risk assessment completed. No skin integrity risk identified. --15:38 Angela Leblanc R.N. Interventions ID band on patient. To room. --15:38 Angela Leblanc R.N. PHYSICAL ASSESSMENT To room via wheelchair. EXTREMITIES: Limited ROM present. Pain with weight bearing. SKIN: Skin is warm and dry. ( puncture wound to lt knee). --15:38 Angela Leblanc R.N. NURSING PROGRESS NOTES 15:32 03/23/2017 TDAP IM 0.5 mL given. (Lot#: [id number], expiration date: 02/25/2019, Claim Benefit Specialist: sanofi pasteur). Given in the right deltoid. Allergies verified and confirmed 5 rights. Vaccine information statement provided to the patient. --15:37 Christian Manrique R.N. Two patient identifiers checked. Call light placed in reach. Side rails up x 2. Bed placed in lowest position. Brakes of bed on. Patient ready for evaluation. --15:39 Angela Leblanc R.N. Patient transported to radiology by stretcher with tech. --15:39 Angela Leblanc R.N. 15:52 03/23/2017 Hydrocodone-APAP (Hydrocodone-Acetaminophen) PO 5 mL given. Allergies verified, confirmed 5 rights and sedative warning given to the patient. --15:52 Angela Leblanc R.N. Patient returned from radiology by stretcher with tech. (15:52). --15:52 Angela Leblanc R.N. Spouse at bedside. --15:53 Angela Leblanc R.N. DISPOSITION / DISCHARGE 16:45. Condition at departure: improved. No learning barriers present. Reviewed medication(s) side effects, precautions, dosing and course information. Prescription(s) given to the patient. Patient verbalized understanding. Written instructions provided in Turkish. The patient was discharged home and accompanied by spouse. He left the Emergency Department ambulatory and via private vehicle. Spouse driving. Medication list reviewed and validated. --17:01 Angela Leblanc R.N. 16:45 03/23/17. BP: 122/69. HR: 80. RR: 18. O2 saturation: 99%. Temp: deferred. Pain level now: 04/26. 15:32 03/23/17. BP: 119/85. HR: 76. RR: 22. O2 saturation: 100%. Temp: 97.9 F. Pain level now: 06/27. --17:01 Angela Leblanc R.N. Locked/Released at 03/23/2017 17:02 by Angela Leblanc R.N.
--- NOTE | 2017-03-23 16:28 | ED NURSING NOTES ---
Clinical Report - Nurses [facility] [address] [place] [address] 03/23/2017 15:27 Patient: FRANCOIS EVANS TRIAGE Triage time 15:32. Acuity: LEVEL 3. Chief Complaint: INJURY TO LEFT KNEE. Alert. No acute distress. SEPSIS SCREEN: Sepsis Screen: negative. Negative (no infection suspected/documented). VICKY COMA SCORE: Vicky Coma Scale: 15- eyes open spontaneously (4); best verbal response- oriented x 4 (5); best motor response- obeys commands (6). --15:38 Angela Leblanc R.N. 15:32 03/23/17. BP: 119/85. HR: 76. RR: 22. O2 saturation: 100%. Temp: 97.9 F. Pain level now: 06/27. --15:38 Angela Leblanc R.N. Weight: 90.7 kg stated. Height/Length: 71 inches Per Patient. BMI: 27.9. --15:36 Angela Leblanc R.N. Medications PredniSONE Oral 10 mg, daily. --15:33 Angela Leblanc R.N. Medication/allergy information source: the patient. --15:38 Angela Leblanc R.N. Allergies PCN. --15:33 Angela Leblanc R.N. History Arrived by private vehicle. Historian: patient. Accompanied by family. No primary care physician. This occurred just prior to arrival. Occurred at work. Mechanism of injury: (Nail from nailgun, papulled from skin prior to arrival). 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 PAST MEDICAL HX: Tetanus status: unknown. ( chronns?). SURGERY HX: Laparotomy. SOCIAL HX: Light tobacco smoker (cigarette)- less than 1/2 a pack per day. Occasional alcohol use. History of drug use: marijuana. Recently used drugs days ago. FALL RISK ASSESSMENT: Fall risk assessment completed. No fall risk identified. NUTRITIONAL RISK ASSESSMENT: The nutritional risk assessment revealed no deficiencies. FUNCTIONAL ASSESSMENT: Functional assessment: no impairments noted. LEARNING NEEDS ASSESSMENT: The learning needs assessment revealed no barriers. SKIN INTEGRITY ASSESSMENT: Skin integrity risk assessment completed. No skin integrity risk identified. --15:38 Angela Leblanc R.N. Interventions ID band on patient. To room. --15:38 Angela Leblanc R.N. PHYSICAL ASSESSMENT To room via wheelchair. EXTREMITIES: Limited ROM present. Pain with weight bearing. SKIN: Skin is warm and dry. ( puncture wound to lt knee). --15:38 Angela Leblanc R.N. NURSING PROGRESS NOTES 15:32 03/23/2017 TDAP IM 0.5 mL given. (Lot#: [id number], expiration date: 02/25/2019, Senior Environmental Consultant: [employer]). Given in the right deltoid. Allergies verified and confirmed 5 rights. Vaccine information statement provided to the patient. --15:37 Christian Manrique R.N. Two patient identifiers checked. Call light placed in reach. Side rails up x 2. Bed placed in lowest position. Brakes of bed on. Patient ready for evaluation. --15:39 Angela Leblanc R.N. Patient transported to radiology by stretcher with tech. --15:39 Angela Leblanc R.N. 15:52 03/23/2017 Hydrocodone-APAP (Hydrocodone-Acetaminophen) PO 5 mL given. Allergies verified, confirmed 5 rights and sedative warning given to the patient. --15:52 Angela Leblanc R.N. Patient returned from radiology by stretcher with tech. (15:52). --15:52 Angela Leblanc R.N. Spouse at bedside. --15:53 Angela Leblanc R.N. DISPOSITION / DISCHARGE 16:45. Condition at departure: improved. No learning barriers present. Reviewed medication(s) side effects, precautions, dosing and course information. Prescription(s) given to the patient. Patient verbalized understanding. Written instructions provided in Angolan. The patient was discharged home and accompanied by spouse. He left the Emergency Department ambulatory and via private vehicle. Spouse driving. Medication list reviewed and validated. --17:01 Angela Leblanc R.N. 16:45 03/23/17. BP: 122/69. HR: 80. RR: 18. O2 saturation: 99%. Temp: deferred. Pain level now: 04/26. 15:32 03/23/17. BP: 119/85. HR: 76. RR: 22. O2 saturation: 100%. Temp: 97.9 F. Pain level now: 06/27. --17:01 Angela Leblanc R.N. Locked/Released at 03/23/2017 17:02 by Angela Leblanc R.N.
--- NOTE | 2017-03-23 22:23 | ED MAR SUMMARY ---
..... Medication Administration Record Located Within [facility] [address] [place] [address] Patient: FRANCOIS EVANS Visit ID: [id number] 27y, M Weight: 90.7 kg Height/Length: 71 in BMI: 27.9 ALLERGIES: PCN Given 15:32 03/23/2017 Christian Manrique RElmer Medication Administered: TDAP [IM], Dose: 0.5 mL IM. Medication Ordered: Tdap IM 0.5 mL (NOW). Given 15:52 03/23/2017 Angela Leblanc R.N. Medication Administered: HYDROCODONE-APAP [PO] (HYDROCODONE-ACETAMINOPHEN), Dose: 5 mL PO. Medication Ordered: Hydrocodone-APAP PO 5/325 mg (NOW, HIGH ALERT MEDICATION).
--- NOTE | 2017-03-23 22:23 | ED MED RECONCILIATION SUMMARY ---
Patient: FRANCOIS EVANS Medication Reconciliation Report [facility] VisitID: [id number] [place] [address] 27y, M Registration Date/Time: 03/23/2017 Weight: 90.7 kg Height/Length: 71 in. BMI: 27.9 ALLERGIES: PCN The patient's Home Medications are listed below: THE FOLLOWING MEDICATIONS NEED TO BE RECONCILED: PredniSONE Oral 10 mg, daily The source(s) of the original Home Medication information: patient The following Medications were given to the patient in the Emergency Department: TDAP [IM] IM 0.5 mL, administered: 03/23/2017 3:32:00 PM Hydrocodone-APAP [PO] PO 5 mL, administered: 03/23/2017 3:52:00 PM The following Medications were prescribed to the patient: Cipro 500 mg: take 1 tab orally every 12 hours for 10 days. Dispense twenty (20). No refills. Substitution is permissible. -- Delma Vazquez A.R.NArnaldoP. Ultram 50 mg tablets: take 1-2 orally every 6 hours as needed for pain. Dispense twenty (20). No refills. Substitution is permissible. -- Delma Vazquez A.R.N.P.
--- NOTE | 2017-03-23 22:23 | ED DISCHARGE INSTRUCTIONS ---
Patient: FRANCOIS EVANS General Instructions [facility] VisitID: [id number] [place] [address] 27y, M Registration Date/Time: 03/23/2017 Single superficial puncture wound to the left knee; foreign body present. Not penetrating into body cavity. No infected puncture wound. Treatment of puncture wound not delayed. INSTRUCTIONS Protect wound and keep wound area clean. Soak in warm soapy water twice daily. Apply neosporin twice daily. Do not work today, tomorrow. Warnings: TETANUS: You were given a tetanus shot during your visit. Make a note for future reference. GENERAL WARNINGS: Return or contact your physician immediately if your condition worsens or changes unexpectedly, if not improving as expected, or if other problems arise. Specifically return if problem worsens. Prescription Medications: Cipro 500 mg: take 1 tab orally every 12 hours for 10 days. Dispense twenty (20). No refills. Substitution is permissible. Ultram 50 mg tablets: take 1-2 orally every 6 hours as needed for pain. Dispense twenty (20). No refills. Substitution is permissible. Follow-up: Follow up with your doctor in about three days as needed and for wound check. Call for an appointment. Summary of care provided to patient. Understanding of the discharge instructions verbalized by patient. ADDITIONAL INFORMATION Puncture Wound (General) A puncture wound is a hole through the skin. Bacteria, dirt and debris can be drawn into this wound, increasing the risk of infection. However, antibiotics are usually not prescribed for this injury unless signs of infection are already present. Therefore, it is important to observe the wound closely for the signs of infection listed below. Home Care: If your wound is on an arm, hand, leg, or foot, keep that part raised during the first 48 hours to reduce swelling and pain. Keep the wound clean and dry. If a bandage was applied and it becomes wet or dirty, replace it. Otherwise, leave it in place for the next 24 hours. You may use acetaminophen (Tylenol) or ibuprofen (Motrin, Advil) to control pain, unless another medicine was prescribed. [NOTE: If you have chronic liver or kidney disease or ever had a stomach ulcer or GI bleeding, talk with your doctor before using these medicines.] You may shower as usual. However, do not soak the area in water (no baths or swimming) during the first 48 hours. Follow Up: Most puncture wounds heal within 10 days. However, an infection may sometimes occur despite proper treatment. If small particles were drawn into the puncture wound (such as fragments of cloth, rubber, wood or dirt), an infection may occur. These fragments are very hard to find during the first exam since it is not possible to get a good look inside a puncture wound and they do not show on an X-ray. Antibiotics and a minor surgical procedure to find and remove the foreign object will be needed if this happens. Therefore, check the wound daily for the warning signs listed below. Get Prompt Medical Attention if any of the following occur: SIGNS OF INFECTION: Increasing pain in the wound Redness, swelling, pus or red lines coming from the wound Fever of 100.4F (38C) or higher, or as directed by your healthcare provider Diphtheria Toxoid Adsorbed, Pertussis Vaccine, Acellular (Adsorbed), Tetanus Toxoid, Adsorbed Suspension for injection What is this medicine? DIPHTHERIA and TETANUS TOXOIDS; PERTUSSIS VACCINE (dif THEER ee uh and TET n us TOK soids; per TUS iss brigidak SEEN) is used to prevent diphtheria, tetanus, and pertussis infections. How should I use this medicine? This vaccine is for injection into a muscle. It is given by a health critical care registered nurse. A copy of Vaccine Information Statements will be given before each vaccination. Read this sheet carefully each time. The sheet may change frequently. Talk to your hydraulic mechanic regarding the use of this vaccine in children. While the DTP vaccine may be given to children ages 6 weeks to 7 years and the Tdap vaccine may be given to children at least 10 years old, precautions do apply. What side effects may I notice from receiving this medicine? Side effects that you should report to your doctor or health critical care registered nurse as soon as possible: allergic reactions like skin rash, itching or hives, swelling of the face, lips, or tongue breathing problems fever of 103 degrees F or more flu-like symptoms inconsolable crying infection pain, tingling, numbness in the hands or feet seizures swelling of arm or leg that was injected unusually weak or tired Side effects that usually do not require immediate medical attention (report these side effects to your doctor or health critical care registered nurse if they continue or are bothersome): fussy, irritable loss of appetite fever of 102 degrees F or less pain, tenderness, redness, swelling, or a 'knot' at site where injected vomiting What may interact with this medicine? immune globulin medicines that suppress your immune function like adalimumab, anakinra, infliximab medicines to treat cancer medicines that treat or prevent blood clots like warfarin, enoxaparin, and dalteparin steroid medicines like prednisone or cortisone What if I miss a dose? It is important not to miss your dose. Call your doctor or health critical care registered nurse if you are unable to keep an appointment. Where should I keep my medicine? This drug is given in a hospital or clinic and will not be stored at home. What should I tell my health care provider before I take this medicine? They need to know if you have any of these conditions: blood disorders like hemophilia fever or infection immune system problems neurologic disease seizures an unusual or allergic reaction to vaccines, thimerosal, latex, other medicines, foods, dyes, or preservatives or trying to get breast-feeding What should I watch for while using this medicine? See your health care provider for all shots of this vaccine as directed. To have protection from infection, you must have 3 shots of this vaccine plus boosters as needed. Tell your doctor right away if you have any serious or unusual side effects after getting this vaccine. Ciprofloxacin Hydrochloride Oral tablet What is this medicine? CIPROFLOXACIN (sip rayo FLOX a sin) is a quinolone antibiotic. It is used to treat certain kinds of bacterial infections. It will not work for colds, flu, or other viral infections. How should I use this medicine? Take this medicine by mouth with a glass of water. Follow the directions on the prescription label. Take your medicine at regular intervals. Do not take your medicine more often than directed. Take all of your medicine as directed even if you think your are better. Do not skip doses or stop your medicine early. You can take this medicine with food or on an empty stomach. It can be taken with a meal that contains dairy or calcium, but do not take it alone with a dairy product, like milk or yogurt or calcium-fortified juice. A special MedGuide will be given to you by the pharmacist with each prescription and refill. Be sure to read this information carefully each time. Talk to your hydraulic mechanic regarding the use of this medicine in children. Special care may be needed. What side effects may I notice from receiving this medicine? Side effects that you should report to your doctor or health critical care registered nurse as soon as possible: - allergic reactions like skin rash, itching or hives, swelling of the face, lips, or tongue - breathing problems - confusion, nightmares or hallucinations - feeling faint or lightheaded, falls - irregular heartbeat - joint, muscle or tendon pain or swelling - pain or trouble passing urine -persistent headache with or without blurred vision - redness, blistering, peeling or loosening of the skin, including inside the mouth - seizure - unusual pain, numbness, tingling, or weakness Side effects that usually do not require medical attention (report to your doctor or health critical care registered nurse if they continue or are bothersome): - diarrhea - nausea or stomach upset - white patches or sores in the mouth What may interact with this medicine? Do not take this medicine with any of the following medications: cisapride droperidol terfenadine tizanidine This medicine may also interact with the following medications: antacids caffeine cyclosporin didanosine (ddI) buffered tablets or powder medicines for diabetes medicines for inflammation like ibuprofen, naproxen methotrexate multivitamins omeprazole phenytoin probenecid sucralfate theophylline warfarin What if I miss a dose? If you miss a dose, take it as soon as you can. If it is almost time for your next dose, take only that dose. Do not take double or extra doses. Where should I keep my medicine? Keep out of the reach of children. Store at room temperature below 30 degrees C (86 degrees F). Keep container tightly closed. Throw away any unused medicine after the expiration date. What should I tell my health care provider before I take this medicine? They need to know if you have any of these conditions: -bone problems -cerebral disease -joint problems -irregular heartbeat -kidney disease -liver disease -myasthenia gravis -seizure disorder -tendon problems -an unusual or allergic reaction to ciprofloxacin, other antibiotics or medicines, foods, dyes, or preservatives - or trying to get -breast-feeding What should I watch for while using this medicine? Tell your doctor or health critical care registered nurse if your symptoms do not improve. Do not treat diarrhea with over the counter products. Contact your doctor if you have diarrhea that lasts more than 2 days or if it is severe and watery. You may get drowsy or dizzy. Do not drive, use machinery, or do anything that needs mental alertness until you know how this medicine affects you. Do not stand or sit up quickly, especially if you are an older patient. This reduces the risk of dizzy or fainting spells. This medicine can make you more sensitive to the sun. Keep out of the sun. If you cannot avoid being in the sun, wear protective clothing and use sunscreen. Do not use sun lamps or tanning beds/booths. Avoid antacids, aluminum, calcium, iron, magnesium, and zinc products for 6 hours before and 2 hours after taking a dose of this medicine. Tramadol Hydrochloride Oral tablet What is this medicine? TRAMADOL (TRA ma dole) is a pain reliever. It is used to treat moderate to severe pain in adults. How should I use this medicine? Take this medicine by mouth with a full glass of water. Follow the directions on the prescription label. If the medicine upsets your stomach, take it with food or milk. Do not take more medicine than you are told to take. Talk to your hydraulic mechanic regarding the use of this medicine in children. Special care may be needed. What side effects may I notice from receiving this medicine? Side effects that you should report to your doctor or health critical care registered nurse as soon as possible: allergic reactions like skin rash, itching or hives, swelling of the face, lips, or tongue breathing difficulties, wheezing confusion itching light headedness or fainting spells redness, blistering, peeling or loosening of the skin, including inside the mouth seizures Side effects that usually do not require medical attention (report to your doctor or health critical care registered nurse if they continue or are bothersome): constipation dizziness drowsiness headache nausea, vomiting What may interact with this medicine? Do not take this medicine with any of the following medications: MAOIs like Carbex, Eldepryl, Marplan, Nardil, and Parnate This medicine may also interact with the following medications: alcohol or medicines that contain alcohol antihistamines benzodiazepines bupropion carbamazepine or oxcarbazepine clozapine cyclobenzaprine digoxin furazolidone linezolid medicines for depression, anxiety, or psychotic disturbances medicines for migraine headache like almotriptan, eletriptan, frovatriptan, naratriptan, rizatriptan, sumatriptan, zolmitriptan medicines for pain like pentazocine, buprenorphine, butorphanol, meperidine, nalbuphine, and propoxyphene medicines for sleep muscle relaxants naltrexone phenobarbital phenothiazines like perphenazine, thioridazine, chlorpromazine, mesoridazine, fluphenazine, prochlorperazine, promazine, and trifluoperazine procarbazine warfarin What if I miss a dose? If you miss a dose, take it as soon as you can. If it is almost time for your next dose, take only that dose. Do not take double or extra doses. Where should I keep my medicine? Keep out of the reach of children. Store at room temperature between 15 and 30 degrees C (59 and 86 degrees F). Keep container tightly closed. Throw away any unused medicine after the expiration date. What should I tell my health care provider before I take this medicine? They need to know if you have any of these conditions: brain tumor depression drug abuse or addiction head injury if you frequently drink alcohol containing drinks kidney disease or trouble passing urine liver disease lung disease, asthma, or breathing problems seizures or epilepsy suicidal thoughts, plans, or attempt; a previous suicide attempt by you or a family member an unusual or allergic reaction to tramadol, codeine, other medicines, foods, dyes, or preservatives or trying to get breast-feeding What should I watch for while using this medicine? Tell your doctor or health critical care registered nurse if your pain does not go away, if it gets worse, or if you have new or a different type of pain. You may develop tolerance to the medicine. Tolerance means that you will need a higher dose of the medicine for pain relief. Tolerance is normal and is expected if you take this medicine for a long time. Do not suddenly stop taking your medicine because you may develop a severe reaction. Your body becomes used to the medicine. This does NOT mean you are addicted. Addiction is a behavior related to getting and using a drug for a non-medical reason. If you have pain, you have a medical reason to take pain medicine. Your doctor will tell you how much medicine to take. If your doctor wants you to stop the medicine, the dose will be slowly lowered over time to avoid any side effects. You may get drowsy or dizzy. Do not drive, use machinery, or do anything that needs mental alertness until you know how this medicine affects you. Do not stand or sit up quickly, especially if you are an older patient. This reduces the risk of dizzy or fainting spells. Alcohol can increase or decrease the effects of this medicine. Avoid alcoholic drinks. You may have constipation. Try to have a bowel movement at least every 2 to 3 days. If you do not have a bowel movement for 3 days, call your doctor or health critical care registered nurse. Your mouth may get dry. Chewing sugarless gum or sucking hard candy, and drinking plenty of water may help. Contact your doctor if the problem does not go away or is severe. You have been given the following additional information: Puncture Wound, General Diphtheria Toxoid Adsorbed, Pertussis Vaccine, Acellular (Adsorbed), Tetanus Toxoid, Adsorbed Suspension for injection Ciprofloxacin Hydrochloride Oral tablet Tramadol Hydrochloride Oral tablet Do not work today, tomorrow. (Electronically signed by Delma Vazquez A.R.N.P. 03/23/2017 22:23)
--- NOTE | 2017-03-23 22:23 | ED MAR SUMMARY ---
..... Medication Administration Record [facility] [address] [place] [address] Patient: FRANCOIS EVANS Visit ID: [id number] 27y, M Weight: 90.7 kg Height/Length: 71 in BMI: 27.9 ALLERGIES: PCN Given 15:32 03/23/2017 Christian Manrique RElmer Medication Administered: TDAP [IM], Dose: 0.5 mL IM. Medication Ordered: Tdap IM 0.5 mL (NOW). Given 15:52 03/23/2017 Angela Leblanc R.N. Medication Administered: HYDROCODONE-APAP [PO] (HYDROCODONE-ACETAMINOPHEN), Dose: 5 mL PO. Medication Ordered: Hydrocodone-APAP PO 5/325 mg (NOW, HIGH ALERT MEDICATION).
--- NOTE | 2017-03-23 22:23 | ED MED RECONCILIATION SUMMARY ---
Patient: FRANCOIS EVANS Medication Reconciliation Report [facility] VisitID: [id number] [place] [address] 27y, M Registration Date/Time: 03/23/2017 Weight: 90.7 kg Height/Length: 71 in. BMI: 27.9 ALLERGIES: PCN The patient's Home Medications are listed below: THE FOLLOWING MEDICATIONS NEED TO BE RECONCILED: PredniSONE Oral 10 mg, daily The source(s) of the original Home Medication information: patient The following Medications were given to the patient in the Emergency Department: TDAP [IM] IM 0.5 mL, administered: 03/23/2017 3:32:00 PM Hydrocodone-APAP [PO] PO 5 mL, administered: 03/23/2017 3:52:00 PM The following Medications were prescribed to the patient: Cipro 500 mg: take 1 tab orally every 12 hours for 10 days. Dispense twenty (20). No refills. Substitution is permissible. -- Delma Vazquez A.R.NArnaldoP. Ultram 50 mg tablets: take 1-2 orally every 6 hours as needed for pain. Dispense twenty (20). No refills. Substitution is permissible. -- Delma Vazquez A.R.N.P.
== END 2017-03-23 16:45 | disposition home or self-care (01) ==
LOC: ED SRH 15:25
DX: S81.042A Puncture wound with foreign body, left knee, initial encounter (principal); W29.4XXA Contact with nail gun, initial encounter; Y92.69 Other specified industrial and construction area as the place of occurrence of the external cause; Y99.0 Civilian activity done for income or pay; Z79.899 Other long term (current) drug therapy; F17.210 Nicotine dependence, cigarettes, uncomplicated; Z88.0 Allergy status to penicillin; Z23 Encounter for immunization